=== PATIENT | male | born 1935 | race Caucasian/White ===

== ENCOUNTER 2019-12-30 13:36 | Emergency (ER) | payer MEDICARE ==
[~2019-12-30] VITALS: Ht 172.7 cm; Wt 75.5 kg
--- NOTE | 2019-12-30 13:51 | ED Upper Extremity ---
General Stated Complaint: LT ARM/HAND INJ Source: patient Exam Limitations: no limitations History of Present Illness Date Seen by Provider: Dec 30, 2019 Time Seen by Provider: 13:40 Initial Comments The patient is a pleasant 84-year-old male who presents for evaluation of a left wrist and hand injury. He states he was using a chainsaw to cut down a tree and had already cut down the tree but it was being held up off the ground by a large branch. He cut the branch and the the tree limb fell on him pinning him down and injuring his left hand/wrist. He states he feels that his wrist is fractured. There is a large skin tear to the back of the left hand. He is unsure of his last TDAP. The patient is unable to go through full range of motion of the left hand and wrist without significant discomfort. He denies hitting his head, losing consciousness, headache, neck pain, chest pain or shortness of breath. He states the tree hit his left leg and he is a little sore but denies any serious injury there and he has been able to ambulate. He is alert and oriented 4, calm, and appears to be uncomfortable but in no distress at this time. He says that he laid on the ground for about 30-40 minutes yelling for help. Onset: just prior to arrival Severity: severe Pain/Injury Location: left wrist, left hand Method of Injury: direct blow Modifying Factors: Improves With Movement (increases the pain), Improves With Rest (decreases the pain) Allergies and Home Medications Allergies Coded Allergies: No Known Drug Allergies (Unverified , 12/30/19) Home Medications Cephalexin 500 Mg Capsule, 500 MG PO Q8H Prescribed by: NADIYA MORILLO on 12/30/19 1501 Hydrocodone/Acetaminophen 1 Each Tablet, 1 EACH PO Q6H PRN for PAIN-MODERATE (5- 7) Prescribed by: NADIYA MORILLO on 12/30/19 1501 Patient Home Medication List Home Medication List Reviewed: Yes Review of Systems Constitutional: no symptoms reported EENTM: no symptoms reported Respiratory: no symptoms reported Cardiovascular: no symptoms reported Gastrointestinal: no symptoms reported Genitourinary: no symptoms reported Musculoskeletal: other (left hand/wrist injury) Skin: other (skin tear/lacerations to left hand) Psychiatric/Neurological: No Symptoms Reported All Other Systems Reviewed Negative Unless Noted: Yes Past Youpcpt-Xhdjrk-Pnixpu Hx Past Med/Social Hx: Reviewed Nursing Past Med/Soc Hx Patient Social History Recent Foreign Travel: No Contact w/Someone Who Travel: No Physical Exam Vital Signs Vital Signs - First Documented Capillary Refill : Height, Weight, BMI Height: '" Weight: lbs. oz. kg; BMI Method: General Appearance: WD/WN, no apparent distress HEENT: PERRL/EOMI, normal ENT inspection Neck: non-tender, full range of motion Cardiovascular: regular rate, rhythm, no edema, no JVD Respiratory: lungs clear, normal breath sounds, no respiratory distress, no accessory muscle use Gastrointestinal: normal bowel sounds, non tender, soft Shoulder: normal inspection, non-tender, no evidence of injury, normal ROM Elbow/Forearm: normal inspection, non-tender, no evidence of injury, normal ROM Wrist: Yes bone tenderness (left wrist on dorsal surface), Yes swelling Hand: bone tenderness (left dorsal hand diffusely over metacarpals), laceration (extensive skin tear to left dorsal hand), soft tissue tenderness Neurologic/Tendon: normal motor functions, normal tendon functions Neurologic/Psychiatric: no motor/sensory deficits, alert, normal mood/affect, oriented x 3 Skin: normal color, warm/dry, other (laceration to left palm, approx 5 cm, no active bleeding, flap-like skin tear to left distal dorsal forearm, no active bleeding ) Procedures/Interventions Wound Location: Upper Extremities Other Wound Location left palm Wound Length (cm): 5 Wound's Depth, Shape: superficial Wound Explored: contaminated Irrigated w/ Saline (ccs): 1000 Anesthesia: 1% Lidocaine Volume Anesthetic (ccs): 8 Suture: Monocryl Suture Size: 4-0 Number of Sutures: 9 Layer Closure?: 1 Number Deep Layer Sutures: 0 Sterile Dressing Applied?: Yes Progress Wound contaminated, anesthetized with 1% lidocaine then explored and thoroughly cleaned. No active bleeding. Pt tolerated the repair well, no complications. Splinting and Joint Reduction : Pre-Proc Neuro Vasc Exam: normal Post-Proc Neuro Vasc Exam: normal, unchanged from pre-exam Progress Pt tolerated the left ulnar gutter orthoglass splint well Hand-Made Type: orthoglass (left ulnar gutter splint) Progress/Results/Core Measures Results/Orders My Orders Orders - NADIYA MORILLO DO Wrist 3 View Left (12/30/19 13:46) Hand 3 View Left (12/30/19 13:46) Ed Iv/Invasive Line Start (12/30/19 13:46) Forearm 2 View Left (12/30/19 13:46) Fentanyl Injection (Sublimaze Injection (12/30/19 14:00) Dipht,Pertuss(Acell),Tet Adult (Boostrix (12/30/19 14:00) Lidocaine 1% Inj 20 Ml (Xylocaine 1% Inj (12/30/19 14:00) Ns Iv 1000 Ml (Sodium Chloride 0.9%) (12/30/19 14:30) Ortho Glass (12/30/19 14:25) Medications Given in ED Current Medications Medications Dose Ordered Sig/Prosper Route Start Time Stop Time Status Last Admin Dose Admin Diphtheria/ Tetanus/Acell Pertussis 0.5 ml ONCE ONCE IM 12/30/19 14:00 12/30/19 14:01 DC 12/30/19 14:06 0.5 ML Fentanyl Citrate 50 mcg ONCE ONCE IVP 12/30/19 14:00 12/30/19 14:01 DC 12/30/19 14:01 50 MCG Lidocaine HCl 20 ml ONCE ONCE INJ 12/30/19 14:00 12/30/19 14:01 DC 12/30/19 14:04 20 ML Vital Signs/I&O 12/30/19 12/30/19 13:42 13:42 Temp 36.4 36.4 Pulse 94 94 Resp 20 20 B/P (MAP) 142/72 (95) 142/72 (95) Pulse Ox 98 98 O2 Delivery Room Air Room Air Progress Progress Note : Progress Note @1525 - patient updated on imaging results which show a distal ulnar fracture. His laceration was repaired and the sutures will need to removed in 10 days. Advised the patient to follow-up with his PCP in 2-3 days for wound check and in 10 days for suture removal. Advised him to follow up with orthopedics in the next 1-2 weeks for repeat imaging and outpatient management. He will go home with a prescription for Keflex and [place]. Advised the patient to return to the emergency Department immediately for new or worsening symptoms. The patient expresses verbal understanding and agreement with the plan and is stable for discharge. Diagnostic Imaging Diagonstic Imaging: Xray Comments [facility]. [place], [place] NAME: BRIAN VELASCO [facility] REC#: [id number] PT STATUS: REG ER : 1935 PHYSICIAN: NADIYA MORILLO DO ADMIT DATE: 12/30/19/ER FS Draft Date of Exam:12/30/19 HAND 3 VIEW LEFT Left hand at 2:06 PM Indication: Injury 3 views were obtained. There are no prior studies available for comparison. There is an oblique slightly comminuted, slightly displaced fracture of the distal ulnar diaphysis. There is no fracture, dislocation or acute bony abnormality involving the hand itself. There is at least moderate degenerative disease of the radiocarpal joint and fairly severe degenerative disease of the triscaphe joint. There is also at least moderate degenerative disease of the 2nd and 3rd metacarpophalangeal joints. Moderate degenerative disease of the PIP and DIP joints is also noted. Reportedly the patient has a laceration along the palmar aspect of the hand. That injury is difficult to appreciate. There is no sign of a radiopaque foreign body. There does seem to be a soft tissue injury to the dorsum of the hand. There is no radiopaque foreign body in this area either. Impression: 1. There is a slightly comminuted and slightly displaced oblique fracture involving the neck of the distal ulnar diaphysis.. There is no acute bony abnormality noted otherwise. 2. 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 3. There is a soft tissue injury to the dorsum of the hand. There is no radiopaque foreign body identified. Dictated on workstation # [id number] Dict: 12/30/19 1423 Trans: 12/30/19 1428 [facility] [id number] Interpreted by: HEBERT CALVERT MD Electronically signed by: Departure Impression Primary Impression: Fracture of distal end of left ulna Additional Impressions: Skin tear of left hand without complication Skin tear of forearm without complication Disposition: 01 HOME, SELF-CARE Condition: Stable Departure-Patient Inst. Decision time for Depature: 15:30 Referrals: BARBARA KIDD MD Patient Instructions: Common Wrist Injuries, Forearm Fracture (DC), Laceration Repair With Stitches (DC) Add. Discharge Instructions: Take the prescribed medication as directed. Follow-up with orthopedics in the next 1-2 weeks. Keep the wound clean and dry and change the dressing in 48 hours. Follow-up with your primary care physician for wound check in 2-3 days. Sutures will need to be removed in 10 days. Scripts Hydrocodone/Acetaminophen (Hydrocodone-Acetamin 5-325 mg) 1 Each Tablet 1 EACH PO Q6H PRN for PAIN-MODERATE (5-7) for 5 Days, #20 TAB Prov: NADIYA MORILLO DO 12/30/19 Cephalexin (Cephalexin) 500 Mg Capsule 500 MG PO Q8H for 10 Days, #30 CAP Prov: NADIYA MORILLO DO 12/30/19 NADIYA MORILLO DO Dec 30, 2019 13:51
[2019-12-30] MEDS ORDERED: fentaNYL INJECTION 100 MCG/2 ML AMP IVP ONE (14:00)
[2019-12-30] MEDS ORDERED: LIDOCAINE 1% INJ 20 ML 20 ML VIAL INJ ONE (14:00)
[2019-12-30] MEDS ORDERED: TETANUS,DIPTH,PERTUSS P/F (BOOSTRIX) 0.5 ML VIAL IM ONE (14:00)
--- NOTE | 2019-12-30 14:26 | Diagnostic Imaging Report ---
INDICATION: Injury to left arm. AP and lateral views of the left forearm are obtained at 2:10 p.m. There is a comminuted fracture of the distal ulna with mild displacement. The radius appears intact. There is no other bony abnormality. IMPRESSION: Comminuted distal ulnar fracture with mild displacement. Dictated by: Dictated on workstation # [id number]
--- NOTE | 2019-12-30 14:29 | Diagnostic Imaging Report ---
Left hand at 2:06 PM Indication: Injury 3 views were obtained. There are no prior studies available for comparison. There is an oblique slightly comminuted, slightly displaced fracture of the distal ulnar diaphysis. There is no fracture, dislocation or acute bony abnormality involving the hand itself. There is at least moderate degenerative disease of the radiocarpal joint and fairly severe degenerative disease of the triscaphe joint. There is also at least moderate degenerative disease of the 2nd and 3rd metacarpophalangeal joints. Moderate degenerative disease of the PIP and DIP joints is also noted. Reportedly the patient has a laceration along the palmar aspect of the hand. That injury is difficult to appreciate. There is no sign of a radiopaque foreign body. There does seem to be a soft tissue injury to the dorsum of the hand. There is no radiopaque foreign body in this area either. Impression: 1. There is a slightly comminuted and slightly displaced oblique fracture involving the neck of the distal ulnar diaphysis.. There is no acute bony abnormality noted otherwise. 2. 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 3. There is a soft tissue injury to the dorsum of the hand. There is no radiopaque foreign body identified, however. Dictated by: Dictated on workstation # [id number]
[2019-12-30] MEDS ORDERED: NS IV 1000 ML 1,000 ML IV SCH (14:30)
--- NOTE | 2019-12-30 14:30 | Diagnostic Imaging Report ---
HISTORY: Trauma to the left arm, laceration to the palm of the left hand. TECHNIQUE: 2 views of the left wrist COMPARISON: None FINDINGS: There is a comminuted, minimally displaced, oblique fracture of the distal left ulnar diametaphysis. No extension to the articular surface is seen. There are advanced degenerative changes at the basal joints of the thumb. There is chronic appearing calcification in the region of the TFCC. There is soft tissue laceration at the dorsal and volar aspects of the left hand. No radiopaque foreign body is seen. IMPRESSION: 1. Minimally displaced comminuted fracture of the distal left ulna. 2. Soft tissue lacerations of the dorsal and volar left hand. No radiopaque foreign body is seen. Dictated by: Dictated on workstation # [id number]
[2019-12-30] MEDS ORDERED: HYDR-83 PO (15:01)
[2019-12-30] MEDS ORDERED: CEPH500C PO (15:01)
[2019-12-30 15:29] VITALS: BP 144/84
--- NOTE | 2019-12-30 15:29 | NUR ---
Pt discharged after review of home instructions verbalized as understood Pt had repair of left palm laceration near base of thumb with 9 sutures of 4-0 Nylon. Pt had hematoma to top of left hand in addition to severe skin tears on left hand lower forearm. These were cleansed with Betasept and sterile saline. Dressings of triple antibiotic ointment, non-adhesive dsgs then Kerlex fluff wrap. Pt had a short arm ulnar gutter splint applied per Dr order for the ulnar fx. Reviewed all instructions with patient and made several notes on instruction sheet. Pt is to leave dsg on for 48 hrs before changing, then daily wound cleaning and re-dressing. Neosporin ointment advised also in wound care. Sutures out in 10 days either here or if in f/u with ortho for fx or wound care. Pt being placed on antibiotics sent to [facility] and handed a script for Hydrocodone to get filled. 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
== END 2019-12-30 15:29 | disposition home or self-care (01) ==
LOC: ER FS 13:40
DX: S52.602A Unspecified fracture of lower end of left ulna, initial encounter for closed fracture (principal); S61.412A Laceration without foreign body of left hand, initial encounter; S51.812A Laceration without foreign body of left forearm, initial encounter; Z23 Encounter for immunization; W20.8XXA Other cause of strike by thrown, projected or falling object, initial encounter
CPT/HCPCS: 12002; 29125; 73090; 73110; 73130; 90715

== ENCOUNTER 2020-01-04 10:21 | Inpatient (IN) | payer MEDICARE ==
[~2020-01-04] VITALS: Ht 173 cm; Wt 75.2 kg
[~2020-01-04 10:21] MED LIST: CEPH500C PO; HYDR-83 PO
--- OUTSIDE RECORDS SUMMARY | 2020-01-04 10:29 | XMS REPORT | Continuity of Care Document ---
Author Organization Unknown Address Unknown Phone Unavailable Allergies Active Description Code Type Severity Reaction Onset Reported/Identified Relationship to Patient Clinical Status Yes No Known Drug Allergies [id number] Drug Allergy Unknown N/A 12/30/2019 Medications There is no data. Problems Date Dx Coded Attending Type Code Diagnosis Diagnosed By 12/30/2019 YISEL HEARN DO Ot M79.642 PAIN IN LEFT HAND 12/30/2019 YISEL HEARN DO Ot S51.812A LACERATION WITHOUT FOREIGN BODY OF LEFT 12/30/2019 YISEL HEARN DO Ot S52.602A UNSP FRACTURE OF LOWER END OF LEFT ULNA, 12/30/2019 YISEL HEARN DO Ot S61.412A LACERATION WITHOUT FOREIGN BODY OF LEFT 12/30/2019 YISEL HEARN DO Ot W20.8XXA OTH CAUSE OF STRIKE BY THROWN, PROJECTED 12/30/2019 YISEL HEARN DO Ot Z23 ENCOUNTER FOR IMMUNIZATION 01/03/2020 YISEL HEARN DO Ot M79.642 PAIN IN LEFT HAND 01/03/2020 YISEL HEARN DO Ot S51.812A LACERATION WITHOUT FOREIGN BODY OF LEFT 01/03/2020 YISEL HEARN DO Ot S52.602A UNSP FRACTURE OF LOWER END OF LEFT ULNA, 01/03/2020 YISEL HEARN DO Ot S61.412A LACERATION WITHOUT FOREIGN BODY OF LEFT 01/03/2020 YISEL HEARN DO Ot W20.8XXA OTH CAUSE OF STRIKE BY THROWN, PROJECTED 01/03/2020 YISEL HEARN DO Ot Z23 ENCOUNTER FOR IMMUNIZATION Procedures There is no data. Results There is no data. Encounters ACCT No. Visit Date/Time Discharge Status Pt. Type Provider Facility Loc./Unit Complaint [id number] 12/30/2019 13:40:00 020 15:29:00 DIS Emergency YISEL HEARN DO [facility] ER FS LT ARM/HAND INJ
[2020-01-04] MEDS ORDERED: HYDROcodone/APAP 5 MG/325 MG (LORTAB) TAB PO ONE (10:45)
--- NOTE | 2020-01-04 10:49 | ED Integumentary General ---
General Chief Complaint: Skin/Wound Problems Stated Complaint: LT HAND INFECTION Nursing Triage Note: Patient reports having injury to L arm 1 week prior. patient reports when changing bandage this morning he had copious amounts of drainage. Source: patient Exam Limitations: no limitations History of Present Illness Date Seen by Provider: Jan 04, 2020 Time Seen by Provider: 10:30 Initial Comments The patient is a pleasant 84-year-old male who presents for evaluation of possible infection to left hand and arm. I saw this patient in the emergency department 5 days ago after he had a tree fall on top of him while cutting it with a chainsaw. He was found to have a distal ulna fracture and was placed in an ulnar gutter splint. He also had a laceration to the palm which was repaired with sutures. His wounds were contaminated, were cleaned thoroughly, and he was placed on antibiotics which she has been compliant with. He states that his pain has been continuing but is helped by the prescribed [place]. He has been taking his temperature and has not had a fever. This morning when he was doing a dressing change he noticed some clear fluid coming out of his palm and felt like he could be pus. He says that some of his pain was relieved after this fluid came out. He states that he has contacted an orthopedic surgeon in the [place] area for follow-up but gave him the impression that they would not be able to see him because of the coronavirus. I explained to the patient that it is very important that he has actual orthopedic follow-up so I will provide him with additional resources today. Timing/Duration: this morning Severity: moderate Location: extremities (left forearm) Associated Symptoms: No fever Allergies and Home Medications Allergies Coded Allergies: No Known Drug Allergies (Unverified , 12/30/19) Home Medications Cephalexin 500 Mg Capsule, 500 MG PO Q8H Prescribed by: NADIYA MORILLO on 12/30/19 1501 Hydrocodone/Acetaminophen 1 Each Tablet, 1 EACH PO Q6H PRN for PAIN-MODERATE (5- 7) Prescribed by: NADIYA MORILLO on 12/30/19 1501 Patient Home Medication List Home Medication List Reviewed: Yes Review of Systems Review of Systems Constitutional: no symptoms reported EENTM: no symptoms reported Respiratory: no symptoms reported Cardiovascular: no symptoms reported Genitourinary: no symptoms reported Musculoskeletal: other (left forearm traumatic injury) Skin: other (left hand wounds) Psychiatric/Neurological: No Symptoms Reported Endocrine: No Symptoms Reported Hematologic/Lymphatic: No Symptoms Reported All Other Systems Reviewed Negative Unless Noted: Yes Past Aiygzln-Umuslg-Peygue Hx Past Med/Social Hx: Reviewed Nursing Past Med/Soc Hx Patient Social History Alcohol Use: Denies Use Recreational Drug Use: No 2nd Hand Smoke Exposure: No Recent Foreign Travel: No Contact w/Someone Who Travel: No Recent Infectious Disease Expo: No Recent Hopitalizations: No Immunizations Up To Date Tetanus Booster (TDap): Unknown Seasonal Allergies Seasonal Allergies: No Past Medical History Surgeries: Yes (Colonoscopy, Surgery for Gastritis, R ankle fx, carpal tunnel, septoplasty) Orthopedic Respiratory: Yes Asthma Cardiac: Yes Hypertension Neurological: No Genitourinary: Yes Benign Prostatic Hyperpl, Kidney Stones Gastrointestinal: Yes (Gastritis hx) Gastroesophageal Reflux Musculoskeletal: No Endocrine: Yes Diabetes, Non-Insulin dep HEENT: No Cancer: No Psychosocial: No Integumentary: No Blood Disorders: No Physical Exam Vital Signs Vital Signs - First Documented 01/04/20 10:26 Temp 36.6 Pulse 110 Resp 18 B/P (MAP) 122/71 (88) Pulse Ox 100 Capillary Refill : Less Than 3 Seconds General Appearance: WD/WN, no apparent distress HEENT: PERRL/EOMI, pharynx normal Neck: non-tender, full range of motion Cardiovascular: regular rate, rhythm, no edema, no JVD Respiratory: lungs clear, normal breath sounds, no respiratory distress Extremities: other (left hand with sutures in place over the thenar eminence on the palmar surface, skin is normal in color and temperature, no purulence is noted or able to be expressed, no bleeding, no wound dehiscence, skin tears to the dorsal aspect of the left hand appear to be healing normally without any overt sign of infection, no warmth, no drainage, there is some swelling and ecchymosis to the hand diffusely but no sign of compartment syndrome and capillary refills normal, there is point tenderness over the distal left ulna, there is also some bony tenderness over the left proximal lateral forearm, full range of motion of the left elbow and shoulder are present) Neurologic/Psychiatric: no motor/sensory deficits, alert, normal mood/affect, oriented x 3 Skin: normal color, warm/dry Procedures/Interventions Suture Size: 4-0 Progress/Results/Core Measures Results/Orders My Orders Orders - NADIYA MORILLO DO Forearm 2 View Left (01/04/20 10:43) Hydrocodone/Apap 5/325 Tablet (Lortab 5 (01/04/20 10:45) Ed Iv/Invasive Line Start (01/04/20 11:21) Cbc With Automated Diff (01/04/20 11:21) Comprehensive Metabolic Panel (01/04/20 11:21) Lactic Acid Analyzer (01/04/20 11:21) Blood Culture (01/04/20 11:21) Clindamycin 600 Mg/50 Ml Ivpb (Cleocin P (01/04/20 11:30) Cefazolin Injection (Ancef Injection) (01/04/20 11:30) Wound Culture (01/04/20 11:38) Medications Given in ED Current Medications Medications Dose Ordered Sig/Prosper Route Start Time Stop Time Status Last Admin Dose Admin Acetaminophen/ Hydrocodone Bitart 1 tab ONCE ONCE PO 01/04/20 10:45 01/04/20 10:46 DC 01/04/20 11:08 1 TAB Vital Signs/I&O 01/04/20 10:26 Temp 36.6 Pulse 110 Resp 18 B/P (MAP) 122/71 (88) Pulse Ox 100 Blood Pressure Mean: 88 Progress Progress Note : Progress Note @1120 - Patient notifies physician that he is not having purulence come out of his wound and the wound was reexamined and there is copious purulent seen at the proximal aspect of the wound. Labs, IV, antibiotics ordered. @1122 - Case was discussed with Dr. Acosta from orthopedics who excepts the orthopedic consultation and will examine the wound. @1130 - Dr. Bonilla, hospitalist, accepts the admission at [facility]. He is agreeable to the antibiotic choice and would like a wound culture to be performed. The patient would like to go by private vehicle which is reasonable. Diagnostic Imaging Diagonstic Imaging: Xray Comments [facility]. [place], [place] NAME: BRIAN VELASCO MED REC#: [id number] PT STATUS: REG ER : 1935 PHYSICIAN: NADIYA MORILLO DO ADMIT DATE: 01/04/20/ER FS Draft Date of Exam:01/04/20 FOREARM 2 VIEW LEFT INDICATION: History of recent wrist fracture. Interval increase in pain. COMPARISON: 12/30/2019 FINDINGS: Frontal and lateral radiographic views of the left forearm were obtained. Again identified is comminuted oblique oriented fracture of the distal left ulna. Fracture fragments are in stable alignment when compared to prior exam. There is no significant surrounding callus formation or other evidence of interval healing. No new acute fracture or dislocation is seen. There is degenerative narrowing of the radiocarpal joint space. Otherwise, joint spaces are maintained. No unexpected radiopaque foreign bodies are seen. IMPRESSION: 1. Stable left distal ulnar fracture. Dictated on workstation # [id number] Dict: 01/04/20 1104 Trans: 01/04/20 1107 [facility] [id number] Interpreted by: KANU ALLEN MD Electronically signed by: Departure Communication (Admissions) Time/Spoke to Admitting Phy: 11:30 Dr. Harris accepts the admission at [facility].. Impression Primary Impression: Infection of hand Additional Impression: Ulna distal fracture Disposition: ADMITTED INPATIENT Condition: Stable Admissions Decision to Admit Reason: Admit from ER (General) Decision to Admit/Date: Jan 04, 2020 Time/Decision to Admit Time: 11:30 Departure-Patient Inst. Referrals: NO,LOCAL PHYSICIAN (PCP/Family) Primary Care Physician NADIYA MORILLO DO Jan 04, 2020 10:49
--- NOTE | 2020-01-04 11:08 | Diagnostic Imaging Report ---
INDICATION: History of recent wrist fracture. Interval increase in pain. COMPARISON: 12/30/2019 FINDINGS: Frontal and lateral radiographic views of the left forearm were obtained. Again identified is comminuted oblique oriented fracture of the distal left ulna. Fracture fragments are in stable alignment when compared to prior exam. There is no significant surrounding callus formation or other evidence of interval healing. No new acute fracture or dislocation is seen. There is degenerative narrowing of the radiocarpal joint space. Otherwise, joint spaces are maintained. No unexpected radiopaque foreign bodies are seen. IMPRESSION: 1. Stable left distal ulnar fracture. Dictated by: Dictated on workstation # [id number]
[2020-01-04] MEDS ORDERED: ceFAZolin INJECTION 1,000 MG in WATER (STERILE) FOR INJECTION 10 ML IV ONE (11:30)
[2020-01-04] MEDS ORDERED: CLINDAMYCIN 600 MG/50 ML IVPB 50 ML IV ONE (11:30)
[2020-01-04 12:06] LABS: HEMATOCRIT 33 % (40-54); HEMOGLOBIN 11.3 G/DL (13.3-17.7); MEAN CORPUSCULAR HEMOGLOBIN 36 PG (25-34); WHITE BLOOD COUNT 7.4 10^3/uL (4.3-11.0)
[2020-01-04 12:07] LABS: BASOPHILS % (AUTO) 0 % (0-10); EOSINOPHILS # (AUTO) 0.1 10^3/uL (0.0-0.3); EOSINOPHILS % (AUTO) 2 % (0-10); LYMPHOCYTES # (AUTO) 1.2 X 10^3 (1.0-4.0); LYMPHOCYTES % (AUTO) 16 % (12-44); MEAN CORPUSCULAR HGB CONC 35 G/DL (32-36); MEAN CORPUSCULAR VOLUME 103 FL (80-99); MEAN PLATELET VOLUME 10.5 FL (7.4-10.4); MONOCYTES # (AUTO) 0.9 X 10^3 (0.0-1.0); MONOCYTES % (AUTO) 12 % (0-12); NEUTROPHILS # (AUTO) 5.2 X 10^3 (1.8-7.8); NEUTROPHILS % (AUTO) 70 % (42-75); PLATELET COUNT 290 10^3/uL (130-400); RED CELL DISTRIBUTION WIDTH 13.2 % (10.0-14.5)
[2020-01-04 12:29] LABS: CREATININE SERUM 1.28 MG/DL (0.60-1.30); POTASSIUM 4.2 MMOL/L (3.6-5.0)
[2020-01-04 12:30] LABS: ALBUMIN 3.7 GM/DL (3.2-4.5); BILIRUBIN,TOTAL 0.5 MG/DL (0.1-1.0); CALCIUM 9.9 MG/DL (8.5-10.1); TOTAL PROTEIN 6.9 GM/DL (6.4-8.2)
[2020-01-04] MEDS ORDERED: NS IV 1000 ML 1,000 ML IV SCH (12:45)
--- OUTSIDE RECORDS SUMMARY | 2020-01-04 12:53 | XMS REPORT | Continuity of Care Document ---
Author Organization Unknown Address Unknown Phone Unavailable Allergies Active Description Code Type Severity Reaction Onset Reported/Identified Relationship to Patient Clinical Status Yes No Known Drug Allergies [id number] Drug Allergy Unknown N/A 12/30/2019 Medications There [...] BY THROWN, PROJECTED 12/30/2019 YISEL HEARN DO B Ot Z23 ENCOUNTER FOR IMMUNIZATION 01/03/2020 YISEL [...] BY THROWN, PROJECTED 01/03/2020 YISEL HEARN DO B Ot Z23 ENCOUNTER FOR IMMUNIZATION Procedures There is no data. Results Test Result Range Complete blood count (CBC) with automate d white blood cell (WBC) differential - 01/04/20 11:50 Blood leukocytes automated count (number/volume) 7.4 10*3/uL 4.3-11.0 Blood erythrocytes automated count (number/volume) 3.17 10*6/uL 4.35-5.85 Venous blood hemoglobin measurement (mass/volume) 11.3 g/dL 13.3-17.7 Blood hematocrit (volume fraction) 33 % 40-54 Automated erythrocyte mean corpuscular volume 103 [foz_us] 80-99 Automated erythrocyte mean corpuscular h emoglobin (mass per erythrocyte) 36 pg 25-34 Automated erythrocyte mean corpuscular h emoglobin concentration measurement (mass/volume) 35 g/dL 32-36 Automated erythrocyte distribution width ratio 13. 2 % 10.0- 14.5 Automated blood platelet count (count/volume) 290 10*3/uL 130-400 Automated blood platelet mean volume measurement 10.5 [foz_us] 7.4-10.4 Automated blood neutrophils/100 leukocytes 70 % 42-75 Automated blood lymphocytes/100 leukocytes 16 % 12-44 Blood monocytes/100 leukocytes 12 % 0-12 Automated blood eosinophils/100 leukocytes 2 % 0-10 Automated blood basophils/100 leukocytes 0 % 0-10 Blood neutrophils automated count (number/volume) 5.2 10*3 1.8-7.8 Blood lymphocytes automated count (number/volume) 1.2 10*3 1.0-4.0 Blood monocytes automated count (number/volume) 0. 9 10*3 0.0-1.0 Automated eosinophil count 0.1 10*3/uL 0 .0-0.3 Automated blood basophil count (count/volume) 0.0 10*3/uL 0.0-0.1 Comprehensive metabolic panel - 01/04/20 11:50 Serum or plasma sodium measurement (moles/volume) 134 mmol/L 135-145 Serum or plasma potassium measurement (moles/volume) 4.2 mmol/L 3.6-5.0 Serum or plasma chloride measurement (moles/volume) 98 mmol/L 98-107 Carbon dioxide 19 mmol/L 21-32 Serum or plasma anion gap determination (moles/volume) 17 mmol/L 5-14 Serum or plasma urea nitrogen measurement (mass/volume ) 28 mg/dL 7-18 Serum or plasma creatinine measurement (mass/volume) 1.28 mg/dL 0.60-1.30 Serum or plasma urea nitrogen/creatinine mass ratio 22 NRG Serum or plasma creatinine measurement w ith calculation of estimated glomerular filtration rate 54 NRG Serum or plasma glucose measurement (mass/volume) 249 mg/dL 70-105 Serum or plasma calcium measurement (mass/volume) 9.9 mg/dL 8.5-10.1 Serum or plasma total bilirubin measurement (mass/volu me) 0.5 mg/dL 0.1-1.0 Serum or plasma alkaline phosphatase andrea surement (enzymatic activity/volume) 162 U/L 40-136 Serum or plasma aspartate aminotransfera se measurement (enzymatic activity/volume) 38 U/L 5-34 Serum or plasma alanine aminotransferase measurement (enzymatic activity/volume) 37 U/L 0-55 Serum or plasma protein measurement (mass/volume) 6.9 g/dL 6.4-8.2 Serum or plasma albumin measurement (mass/volume) 3.7 g/dL 3.2-4.5 CALCIUM CORRECTED 10.1 mg/dL 8.5-10.1 Blood lactic acid measurement (moles/vol ume) - 01/04/20 11:50 Blood lactic acid measurement (moles/volume) 4.35 mmol/L 0.50-2.00 Encounters ACCT No. Visit Date/Time Discharge Status Pt. Type Provider Facility Loc./Unit Complaint [id number] 12/30/2019 13:40:00 020 15:29:00 DIS Emergency YISEL HEARN DO [facility] ER FS LT ARM/HAND INJ [id number] 01/04/2020 12:08:00 Document Registration
--- NOTE | 2020-01-04 14:35 | NUR ---
BRIAN VELASCO admitted to room 421-1, with an admitting diagnosis of left hand infection, on 01/04/[facility] via EMS stretcherROD HARVALEE W introduced to surroundings, call light, bed controls, phone, TV, temperature control, lights, meal times, smoking policy, visitor policy, side rail policy, bathrooms and showers. Patient Rights given to patient in the handbook. BRIAN VELASCO verbalizes understanding that [facility] is not responsible for the loss or damage to any personal effects or valuables that are kept in the patients posession during their hospitalization. The following Patient Care Plans and discharge were discussed with the patient. BRIAN VELASCO verbalizes understanding of Interdisciplinary Patient Education. Patient was informed about the Rapid Response Team and its purpose.
[2020-01-04 14:36] VITALS: BP 137/87
[2020-01-04] MEDS ORDERED: ACET-2267 PO (14:49)
[2020-01-04] MEDS ORDERED: MELO7.5T46 PO (14:49)
[2020-01-04] MEDS ORDERED: CEPH500C PO (14:49)
[2020-01-04] MEDS ORDERED: HYDR-83 PO (14:49)
[2020-01-04] MEDS ORDERED: METF-399 PO (14:49)
[2020-01-04] MEDS ORDERED: LOSA1TAB26 PO (14:49)
--- NOTE | 2020-01-04 14:50 | NUR ---
I SPOKE WITH THE PT AND WENT THRU THE EXT MED HISTORY TO COMPLETE THE MED REC AMLODIPINE 5MG WAS FILLED 09-21-2019 #90 HOWEVER THE PT HAS STOPPED THIS MEDICATION DUE TO THE SIDE EFFECTS HE WAS EXPERIENCING (PT SAID IT MADE HIM FEEL "OFF") THEREFORE I DID NOT INCLUDE THIS ON THE MED REC OTC MEDS: TYLENOL
[2020-01-04] MEDS ORDERED: CATHETER FLUSH 10 ML SYR IV PRN (15:00)
[2020-01-04 16:00] VITALS: BP 130/78
[2020-01-04] MEDS ORDERED: HYDROcodone/APAP 5 MG/325 MG (LORTAB) TAB PO PRN (16:15)
--- NOTE | 2020-01-04 16:27 | NUR ---
PATIENT REQUESTED TO HOLD OFF ON SIGNING CONSENT (NOT SIGNED) - HAD QUESTIONS FOR DR KIDD ABOUT THE FX, WOULD LIKE TO DISCUSS THIS BEFORE SURGERY
--- NOTE | 2020-01-04 16:43 | CONSULTATION REPORT ---
DATE OF SERVICE: 01/04/2020 INPATIENT CONSULTATION REASON FOR CONSULTATION: Left hand infection. HISTORY OF PRESENT ILLNESS: The patient is an 84-year-old gentleman who was transferred from the [place] Emergency Department for concerns about left hand infection. Apparently last , he was cutting down a maple tree when it fell hitting his hand against a bar. He reports that the trunk hit his hand dorsally, which bend the volar aspect against a metal, which caused in it degloving posteriorly and a laceration palmarly. This was treated with local irrigation and debridement with wound exploration in the Emergency Department by Dr. Munoz. Dr. Munoz was working today in the ER. The patient presented with complaints of purulence coming from his wound. The patient denies fever, chills or night sweats. He reports that he awoke this morning and noticed purulence from the laceration site. PAST MEDICAL HISTORY: Significant for diabetes mellitus. ALLERGIES: No known drug allergies. MEDICATIONS: Cephalexin, hydrocodone. PAST SURGICAL HISTORY: Colonoscopy, right ankle, carpal tunnel, knee arthroscopy. PHYSICAL EXAMINATION: The left hand demonstrates a degloving injury superficially to the dorsal aspect of the left hand. There is no purulence. The palmar aspects demonstrate a well-approximated laceration over the thenar eminence. The suture line is intact. There is no associated erythema or warmth; however, there is purulence that can be expressed primarily from the inferior aspect of the wound. There is some mild fluctuance noted as well and the surrounding soft tissues. He has full IP flexion and extension as well as MCP flexion and extension with no pain elicited. He is nontender along his flexor tendons throughout his thumb and fingers. He has no pain with passive range of motion of the fingers or thumb. IMPRESSION: Left thumb thenar abscess status post laceration with contaminated wound. PLAN: Irrigation and debridement of the left hand laceration. The risks, benefits, options, ramifications and recovery were discussed with the patient. He understands and wishes to proceed. Job ID: [id number] DocumentID: [id number] Dictated Date: 01/04/2020 15:13:13 Cosmetic Dentist Date: 01/04/2020 16:42:43 Dictated By: BARBARA KIDD MD
[2020-01-04] MEDS ORDERED: ANTACID SUSP 30 ML UDC (MYLANTA) PO PRN (16:45)
[2020-01-04] MEDS ORDERED: ONDANSETRON 4 MG (ZOFRAN) ORAL DISSOLVE TAB PO PRN (16:45)
[2020-01-04] MEDS ORDERED: PHARMACY TO DOSE SQ SCH (16:45)
[2020-01-04] MEDS ORDERED: diphenhydrAMINE 25 MG TAB (BENADRYL) PO PRN (16:45)
[2020-01-04] MEDS ORDERED: VANCOMYCIN INJECTION 0.1 MG in NS (IVPB) 250 ML IV SCH (16:45)
[2020-01-04] MEDS ORDERED: BISACODYL 10 MG SUPP (DULCOLAX) PR PRN (16:45)
[2020-01-04] MEDS ORDERED: ONDANSETRON 4 MG/2 ML (SDV) Z0FRAN IV PRN (16:45)
[2020-01-04] MEDS ORDERED: ACETAMINOPHEN 325 MG TABLET PO PRN (16:45)
[2020-01-04] MEDS ORDERED: MELATONIN 3 MG TABLET PO PRN (16:45)
[2020-01-04] MEDS ORDERED: polyethylene glycoL POWDER 17 GM (MIRALAX) PACK PO PRN (16:45)
--- NOTE | 2020-01-04 16:45 | NUR ---
CR 1.28; CR CL ~42; WT 75.9 KG; VANCO 1500 MG IV BOLUS THEN 1250 MG IV Q24H; TROUGH AFTER 3RD DOSE
[2020-01-04] MEDS ORDERED: VANCOMYCIN 1500 MG/NS 500 ML IVPB IV NR ×2 (17:00)
[2020-01-04] MEDS ORDERED: PIPERACILLIN/TAZO 4.5 GM/NS 100 ML IV NR ×2 (17:00)
[2020-01-04] MEDS: ENOXAPARIN 40 MG/0.4 ML (LOVENOX) SYR SC SCH (17:06)
[2020-01-04] MEDS: LACTATED RINGERS 1,000 ML IV SCH (17:08)
[2020-01-04] MEDS: inSUlin ASPART (NovoLOG) 1 UNIT/0.01 ML (CHARGE PER UNIT) SC SCH ×2 (17:17→21:02)
[2020-01-04 20:00] VITALS: BP 149/79
[2020-01-04] MEDS: DOCUSATE SODIUM 100 MG (COLACE) CAP PO SCH (20:16)
[2020-01-04] MEDS: SENNA W/DOCUSATE (SENOKOT S) TABLET PO SCH (20:16)
[2020-01-04] MEDS: CATHETER FLUSH 10 ML SYR IV SCH (20:19)
[2020-01-05] VITALS (13 sets, daily range): BP systolic 129–177; BP diastolic 79–100
[2020-01-05] MEDS: PIPERACILLIN/TAZOBACTAM (BULK) 4.5 GM in NS (IVPB) 100 ML IV SCH ×4 (00:03→23:21)
[2020-01-05] MEDS: LACTATED RINGERS 1,000 ML IV SCH ×4 (00:40→19:02)
[2020-01-05] MEDS: inSUlin ASPART (NovoLOG) 1 UNIT/0.01 ML (CHARGE PER UNIT) SC SCH ×6 (00:41→21:18)
[2020-01-05] MEDS: CATHETER FLUSH 10 ML SYR IV SCH ×3 (03:43→21:18)
[2020-01-05 06:05] LABS: CHLORIDE 108 MMOL/L (98-107); SODIUM 138 MMOL/L (135-145)
[2020-01-05 06:06] LABS: CALCIUM 9.1 MG/DL (8.5-10.1)
[2020-01-05 06:07] LABS: GLUCOSE 195 MG/DL (70-105)
[2020-01-05 06:08] LABS: CARBON DIOXIDE 20 MMOL/L (21-32)
[2020-01-05 06:10] LABS: CREATININE SERUM 0.97 MG/DL (0.60-1.30); GFR ESTIMATED > 60
[2020-01-05 06:11] LABS: BUN/CREATININE RATIO 21
[2020-01-05 06:13] LABS: MAGNESIUM 1.3 MG/DL (1.6-2.4)
[2020-01-05 06:24] LABS: BASOPHILS % (AUTO) 0 % (0-10); EOSINOPHILS # (AUTO) 0.2 10^3/uL (0.0-0.3); EOSINOPHILS % (AUTO) 4 % (0-10); HEMATOCRIT 27 % (40-54); HEMOGLOBIN 9.1 G/DL (13.3-17.7); LYMPHOCYTES # (AUTO) 1.3 X 10^3 (1.0-4.0); LYMPHOCYTES % (AUTO) 27 % (12-44); MEAN CORPUSCULAR HEMOGLOBIN 35 PG (25-34); MEAN CORPUSCULAR HGB CONC 34 G/DL (32-36); MEAN CORPUSCULAR VOLUME 104 FL (80-99); MEAN PLATELET VOLUME 9.6 FL (7.4-10.4); MONOCYTES # (AUTO) 0.5 X 10^3 (0.0-1.0); MONOCYTES % (AUTO) 11 % (0-12); NEUTROPHILS # (AUTO) 2.8 X 10^3 (1.8-7.8); NEUTROPHILS % (AUTO) 58 % (42-75); PLATELET COUNT 198 10^3/uL (130-400); RED CELL DISTRIBUTION WIDTH 13.2 % (10.0-14.5); WHITE BLOOD COUNT 4.8 10^3/uL (4.3-11.0)
[2020-01-05] MEDS: POTASSIUM CL 10MEQ/50ML IVPB 50 ML IV SCH (06:30)
[2020-01-05] MEDS: KCL 20 MEQ TAB (K-DUR) PO SCH (06:30)
[2020-01-05] MEDS: MAGNESIUM 1 GM/100 ML IVPB 100 ML IV SCH ×5 (06:44→11:17)
--- NOTE | 2020-01-05 08:14 | Progress Note-Pre Operative ---
Pre-Operative Progress Note H&P Reviewed The H&P was reviewed, patient examined and no changes noted. Date Seen by Provider: Jan 05, 2020 Time Seen by Provider: 08:14 Date H&P Reviewed: Jan 05, 2020 Time H&P Reviewed: 08:14 Pre-Operative Diagnosis: left hand abscess BARBARA KIDD MD Jan 05, 2020 08:14
--- NOTE | 2020-01-05 08:15 | Progress Note-Post Operative ---
Post-Operative Progess Note Surgeon (s)/Stock Sheets Cleaner Inspector (s) Surgeon BARBARA KIDD MD Stock Sheets Cleaner Inspector: Carlos Miranda Pre-Operative Diagnosis left hand abscess Post-Operative Diagnosis left hand abscess Procedure & Operative Findings Date of Procedure 01/05/20 Procedure Performed/Findings irrigation and debridement of left hand Anesthesia Type GETA Estimated Blood Loss Estimated blood loss (mL): minimal Specimens/Packing Specimens Removed cultures sent Packing: none BARBARA KIDD MD Jan 05, 2020 08:15
[2020-01-05] MEDS ORDERED: BUPIVACAINE 0.5% 30 ML (SENSORCAINE) VIAL ONE (08:29)
[2020-01-05] MEDS ORDERED: ACETAMINOPHEN 325 MG TABLET PO PRN (08:30)
[2020-01-05] MEDS ORDERED: morphine INJ 4 MG/ML 1 ML (VIAL/SYRINGE) IVP PRN (08:30)
[2020-01-05] MEDS ORDERED: ONDANSETRON 4 MG/2 ML (SDV) Z0FRAN IVP PRN ×2 (08:30→10:15)
[2020-01-05] MEDS ORDERED: fentaNYL INJECTION 100 MCG/2 ML AMP ONE (08:55)
[2020-01-05] MEDS ORDERED: LIDOCAINE PF 2% 5 ML (XYLOCAINE) VIAL ONE (09:04)
[2020-01-05] MEDS ORDERED: proPOfol 200 MG/20 ML (DIPRIVAN) VIAL IV ONE (09:04)
--- NOTE | 2020-01-05 10:04 | Occ Therapy Progress Note ---
Therapy Progress Note OT orders received and chart reviewed. OT attempted eval at 0945, but pt was in surgery at that time. OT will attempt eval again at next available time. 1, visit 0945 LIDYA JUAREZ OT Jan 05, 2020 10:04
[2020-01-05] MEDS ORDERED: morphine INJ 10 MG/ML 1ML (SYR OR VIAL) ONE (10:10)
[2020-01-05] MEDS ORDERED: HYDROmorphone 2 MG/ML VIAL (DILAUDID) IV ONE (10:15)
[2020-01-05] MEDS ORDERED: morphine INJ 10 MG/ML 1ML (SYR OR VIAL) IVP ONE (10:15)
--- NOTE | 2020-01-05 11:03 | Anesthesia-General Post-Op ---
General Patient Condition Mental Status/LOC: Same as Preop Cardiovascular: Satisfactory Nausea/Vomiting: Absent Respiratory: Satisfactory Pain: Controlled Complications: Absent Post Op Complications Complications None Follow Up Care/Instructions Patient Instructions None needed. Anesthesia/Patient Condition Patient Condition Patient is doing well, no complaints, stable vital signs, no apparent adverse anesthesia problems. NICOLE ALLEN DO Jan 05, 2020 11:03
[2020-01-05] MEDS: SENNA W/DOCUSATE (SENOKOT S) TABLET PO SCH ×2 (11:25→20:02)
[2020-01-05] MEDS: LOSARTAN 100 MG (COZAAR) TABLET PO SCH (11:25)
[2020-01-05] MEDS: CIPROFLOXACIN IV 400MG/200ML 200 ML IV SCH ×2 (11:25→20:00)
[2020-01-05] MEDS: DOCUSATE SODIUM 100 MG (COLACE) CAP PO SCH ×2 (11:25→20:01)
--- NOTE | 2020-01-05 11:29 | OPERATIVE REPORT ---
DATE OF SERVICE: PREOPERATIVE DIAGNOSIS: Left hand abscess. POSTOPERATIVE DIAGNOSIS: Left hand abscess. PROCEDURE: Irrigation and debridement of left hand. SURGEON: Lukas Kdid MD. ICT ACCOUNT MANAGER: Carlos Miranda, who assisted throughout the procedure and closed the incision. ANESTHESIA: General endotracheal by Dr. Carranza. TOURNIQUET TIME: Not applicable. ESTIMATED BLOOD LOSS: Minimal. DRAINS: None. COMPLICATIONS: None. SPECIMENS: Cultures were sent. POSTOPERATIVE PLAN: Antibiotic coverage for gram negative rods. The patient was transferred to the recovery room awake and in stable condition. STATEMENT OF MEDICAL NECESSITY: The patient is an 84-year-old right-hand dominant gentleman, who sustained a traumatic laceration to his lefthand last week. He was treated at an outside Emergency Department with local wound exploration and irrigation and wound closure. He presented yesterday to the same Emergency Department and was found to have purulence. He had no systemic illness and the wound itself demonstrated no gross erythema or warmth. There was some mild fluctuance and there was purulence expressed. Because of this, it was recommended the patient undergo wound exploration with irrigation and debridement. DESCRIPTION OF PROCEDURE: After risks and benefits of procedure were discussed and questions were answered, informed consent was signed and placed on the chart, the operative site was confirmed in the preoperative holding area initialed by the surgeon. The patient was then transferred to the operating room. After adequate levels of general endotracheal anesthetic were obtained, a timeout was called, confirming the operative site. Left upper extremity was prepped and draped in the usual sterile fashion. The previously placed sutures were removed and the wound was opened and cultures were obtained. There was purulence noted, small area of purulent collection near the flexor carpi radialis sheath. During the operative procedure, the laboratory called and stated that his cultures from yesterday reveal gram-negative rods. The wound was carefully explored throughout. No large foreign bodies were noted. There was significant debris throughout the soft tissues. No necrosis was noted. No encapsulated purulence was noted. The debris was meticulously removed and debrided roughly with a Ray-Michell. There appeared to be no penetration into the deep tissues. This involved the thenar musculature both superficially and as stated the sheath of the flexor carpi radialis, but nothing deeper was noted and this did not extend deep into the palm. The wound was then copiously irrigated with a liter of lavage. As stated, no necrotic tissue was noted. The wound edges were sharply debrided and then closed in a loose fashion using a horizontal mattress fashion 4-0 Vicryl. A soft dressing and ulnar gutter splint were applied. The patient was transferred to the recovery room, awake and in stable condition. Job ID: [id number] DocumentID: [id number] Dictated Date: 01/05/2020 10:03:35 Civil Engineer Helper Date: 01/05/2020 11:29:06 Dictated By: LUKAS KIDD MD
[2020-01-05] MEDS: oxyCODONE/APAP 5/325MG (PERCOCET 5) TABLET PO PRN ×2 (11:31→20:01)
--- NOTE | 2020-01-05 13:29 | History & Physical-Hospitalist ---
History of Present Illness HPI/Chief Complaint Mark Hinojosa is an 84-year-old male with past medical history of hypertension who presented with left hand wound. He had been cutting down a tree about a week though and he was struck by a limb and had a laceration. He went to the [facility] emergency room and the wound was washed out. He was started on oral antibiotics with Keflex. His wound worsened and he developed more purulent drainage and thus he returned to the emergency room. He denies any fevers or chills. He denies any nausea or vomiting. He has no other complaints or concerns. Source: patient Exam Limitations: no limitations Date Seen 01/05/20 Time Seen by a Provider: 12:55 Attending Physician Rosario Montenegro MD PCP No,Local Physician Referring Physician Date of Admission Jan 04, 2020 at 12:45 Home Medications & Allergies Home Medications Reviewed patient Home Medication Reconciliation performed by pharmacy medication reconciliations satellite tv technician installer and/or nursing. Patients Allergies have been reviewed. Allergies Allergies Coded Allergies No Known Drug Allergies (Unverified12/30/19) Past Smxxttg-Zmvbkh-Lllfsb Hx Past Med/Social Hx: Reviewed Nursing Past Med/Soc Hx Patient Social History Alcohol Use: Denies Use Recreational Drug Use: No Smoking Status: Never a Smoker 2nd Hand Smoke Exposure: No Physical Abuse Screen: No Sexual Abuse: No Recent Foreign Travel: No Contact w/other who traveled: No Recent Hopitalizations: No Recent Infectious Disease Expo: No Immunizations Up To Date Tetanus Booster (TDap): Unknown Date of Pneumonia Vaccine: Oct 23, 2016 Seasonal Allergies Seasonal Allergies: No Past Medical History Surgeries: Orthopedic Currently Using CPAP: No Currently Using BIPAP: No Cardiac: Hypertension Genitourinary: Benign Prostatic Hyperpl, Kidney Stones Gastrointestinal: Gastroesophageal Reflux Endocrine: Diabetes, Non-Insulin dep History of Blood Disorders: No Family History Diabetes mellitus 20 MOTHER Review of Systems Constitutional: no symptoms reported EENTM: no symptoms reported Respiratory: no symptoms reported Cardiovascular: no symptoms reported Gastrointestinal: no symptoms reported Genitourinary: no symptoms reported Musculoskeletal: no symptoms reported Skin: lesions Psychiatric/Neurological: No Symptoms Reported Physical Exam Physical Exam Vital Signs Vital Signs - First Documented 01/04/20 01/04/20 10:26 14:36 Temp 36.6 Pulse 110 Resp 18 B/P (MAP) 122/71 (88) Pulse Ox 100 O2 Delivery Room Air Capillary Refill : Less Than 3 SecondsLess Than 3 Seconds Height, Weight, BMI Height: '" Weight: lbs. oz. kg; 25.36 BMI Method: General Appearance: No Apparent Distress, WD/WN Neck: Normal Inspection, Supple Respiratory: Lungs Clear, Normal Breath Sounds, No Respiratory Distress Cardiovascular: Regular Rate, Rhythm, No Edema, No Murmur Gastrointestinal: Normal Bowel Sounds, Non Tender, Soft Extremity: Non Tender, No Pedal Edema, Other (Left hand and forearm wrapped) Neurologic/Psychiatric: Alert, Oriented x3, No Motor/Sensory Deficits, Normal Mood/Affect Skin: Other (Left hand wound with wrap in place) Results Results/Procedures Labs Laboratory Tests 01/04/20 11:50 01/05/20 05:45 01/05/20 06:20 Patient resulted labs reviewed. Imaging: Reviewed Imaging Report Assessment/Plan Admission Diagnosis Left hand abscess Admission Status: Inpatient Order (span 2 midnights) Reason for Inpatient Admission: Abscess requiring incision and drainage Assessment and Plan Left hand abscess Left distal ulnar fracture Started on vancomycin and Zosyn, continue Wound culture obtained Surgery consulted, Dr. Acosta performed incision and drainage this morning Lactic acidosis Lactic acidosis above 4 on admission, 1.1 this morning Continue IV fluids Hypomagnesemia Mag 1.3 this morning, replaced with IV magnesium sulfate Continue to monitor and replace as needed Hypertension Continue losartan, hold hydrochlorothiazide Type II diabetes mellitus sliding scale insulin DVT prophylaxis: Lovenox Diagnosis/Problems Diagnosis/Problems (1) Abscess of left hand Status: Acute (2) Left ulnar fracture Status: Acute Qualifiers: Encounter type: subsequent encounter (3) HTN (hypertension) Status: Chronic Qualifiers: Hypertension type: essential hypertension Qualified Codes: I10 - Essential (primary) hypertension (4) T2DM (type 2 diabetes mellitus) Status: Chronic Qualifiers: Diabetes mellitus long-term insulin use: without buttermaker use (5) Lactic acidosis Status: Acute (6) Hypomagnesemia Status: Acute Clinical Quality Measures DVT/VTE Risk/Contraindication: Risk Factor Score Per Nursin RFS Level Per Nursing on Admit: 4+=Very High ROSARIO MONTENEGRO MD Jan 05, 2020 13:29
--- NOTE | 2020-01-05 13:34 | Physical Therapy Evaluation ---
PT Evaluation-General Medical Diagnosis Admission Date Jan 04, 2020 at 12:45 Medical Diagnosis: I&D of (L) hand Onset Date: Jan 05, 2020 Therapy Diagnosis Therapy Diagnosis: abnormality of gait Precautions Precautions/Isolations: Standard Precautions Weight Bear Status Right Lower Extremity: Right Weight Bearing/Tolerated Left Lower Extremity: Left Weight Bearing/Tolerated Referral Physician: Karla Reason for Referral: Evaluation/Treatment Social History Home: Single Level Current Living Status: Significant Other Entry Into Home: Stairs With Railing PT Steps Into Home: 2 Prior Prior Level of Function SCALE: Activities may be completed with or without assistive devices. 4-Lcjpvzbazv-xzojfsw completes the activity by him/herself with no assistance from a helper. 5-Set-up or Clean-up Assistance-helper sets up or cleans up; patient completes activity. [place] assists only prior to or following the activity. 4-Supervision or Touching Assistance-helper provides verbal cues and/or touching/steadying and/or contact guard assistance as patient completes activity. Assistance may be provided throughout the activity or intermittently. 3-Partial/Moderate Assistance-helper does LESS THAN HALF the effort. [place] lifts, holds or supports trunk or limbs, but provides less than half the effort. 2-Substantial/Maximal Assistance-helper does MORE THAN HALF the effort. [place] lifts or holds trunk or limbs and provides more than half the effort. 8-Aokazsspu-ykrmcx does ALL the effort. Patient does none of the effort to complete the activity. Or, the assistance of 2 or more helpers is required for the patient to complete the activity. If activity was not attempted, code reason: 7-Patient Refused. 9-Not Applicable-not attempted and the patient did not perform the activity before the current illness, exacerbation or injury. 10-Not Attempted due to Environmental Limitations-(lack of equipment, weather restraints, etc.). 88-Not Attempted due to Medical Conditions or Safety Concerns. Bed Mobility: 6 Transfers (B,C,W/C): 6 Gait: 6 Stairs: 6 Indoor Mobility (Ambulation): Independent Stairs: Independent Prior Devices Use: None PT Evaluation-Current Subjective The patient states that he is doing well. ROM/Strength ROM Lower Extremities WFL Strength Lower Extremities 4+/5 grossly Transfers Roll Left to Right (QC): 6 Sit to Lying (QC): 6 Lying to Sitting/Side of Bed(Q: 6 Sit to Stand (QC): 6 Chair/Oji-rf-Vgnrv Xfer(QC): 6 Gait Does the Patient Walk?: Yes Mode of Locomotion: Both Anticipated Mode of Locomotion: Walk Walk 10 feet (QC): 6 Walk 50 ft with 2 Turns(QC): 6 Distance: 50' Gait Assistive Device: None Balance Sitting Static: Normal Sitting Dynamic: Normal Standing Static: Normal Standing Dynamic: Good Assessment/Needs The patient is at baseline for all gait and balance activities and does not need skilled PT. Rehab Potential: Good PT Plan Treatment/Plan Treatment Plan: Discontinue PT Treatment Duration: Jan 05, 2020 Frequency: 1 time per week Time/GCodes Time In: 1315 Time Out: 1330 Total Billed Treatment Time: 15 Total Billed Treatment 1, EV Low Complexity x 15' ZELALEM ALLEN PT Jan 05, 2020 13:34
--- NOTE | 2020-01-05 13:53 | NUR ---
RD ASSESSMENT PMHx: DM; HTN; BPH; GERD; recent fracture to left arm PT INTERACTION: Pt was awake and pleasant during nutrition assessment. Pt states current appetite is fair and has been for some time. Note PO intake 100% x1meal since diet advancement after procedure, per chart review. Pt states trying to follow a low-CHO diet at home, and has no issues with chewing/swallowing food. Pt states no recent issues with n/v at this time. Pt states some issues with constipation, and that his last BM was 01/03. Note pt currently on bowel regimen of Colace BID; and Senna BID; per chart review. Pt states no recent wt changes. Note unable to determine recent wt hx, per chart review. Pt states current DM management is "a little out of whack the last few months." Note unable to determine recent HbA1c, per chart review. Note presence of wound on left hand, per chart review. ABNORMAL NUTRITION-RELATED LAB VALUES LOW: Mg 1.3 HIGH: Cl 108; BUN 20; glu 195 Est. kcal needs: 9319-1312 kcal | 25-30 kcal/kg Est. Pro needs: 92-107 g Pro | 1.2-1.4 g Pro/kg PES STATEMENT: Inadequate protein intake (NI-5.6.1) related to increased protein needs as evidenced by presence of wounds (left hand) INTERVENTION: Continue with current diet order of CHO 60g/m 0snack diet. Add Ensure HP (vary) to meals TID. Provides 160 kcal and 16 g Pro per serving for percevied benefit to wound healing. Will continue to follow and reassess as pt needs, intake, and status change. MONITOR/EVALUATE: PO Intake; Plan of Care; Hydration Status; Weight Status; Lab Values Ish Cohen, MS, RD, LD
--- NOTE | 2020-01-05 14:26 | Occupational Therapy Eval ---
OT Evaluation-General/PLF Medical Diagnosis Admission Date Jan 04, 2020 at 12:45 Medical Diagnosis: I&D of (L) hand Onset Date: Jan 05, 2020 Therapy Diagnosis Therapy Diagnosis: impaired ADL, decreased L hand function Precautions Precautions/Isolations: Standard Precautions Safety Interventions: None Referral Physician: Steven Referral Reason: Evaluation/Treatment Medical History Pertinent Medical History: DM, HTN Additional Medical History colonoscopy, R ankle, carpal tunnel, knee arthroscopy Current History Per H&P: "Mark Hinojosa is an 84-year-old male with past medical history of hypertension who presented with left hand wound. He had been cutting down a tree about a week though and he was struck by a limb and had a laceration. He went to the [place] emergency room and the wound was washed out. He was started on oral antibiotics with Keflex. His wound worsened and he developed more purulent drainage and thus he returned to the emergency room. He denies any fevers or chills. He denies any nausea or vomiting. He has no other complaints or concerns." Chart review indicates pt also fractured his left ulna. Social History Home: Single Level Current Living Status: Significant Other Entry Into Home: Stairs With Railing Steps Into Home: 2 ADL-Prior Level of Function SCALE: Activities may be completed with or without assistive devices. 4-Jcmnuhwlrr-fcfxaqt completes the activity by him/herself with no assistance from a helper. 5-Set-up or Clean-up Assistance-helper sets up or cleans up; patient completes activity. [place] assists only prior to or following the activity. 4-Supervision or Touching Assistance-helper provides verbal cues and/or touching/steadying and/or contact guard assistance as patient completes activity. Assistance may be provided throughout the activity or intermittently. 3-Partial/Moderate Assistance-helper does LESS THAN HALF the effort. [place] lifts, holds or supports trunk or limbs, but provides less than half the effort. 2-Substantial/Maximal Assistance-helper does MORE THAN HALF the effort. [place] lifts or holds trunk or limbs and provides more than half the effort. 1-Nlbrpkfbm-vwdjcs does ALL the effort. Patient does none of the effort to complete the activity. Or, the assistance of 2 or more helpers is required for the patient to complete the activity. If activity was not attempted, code reason: 7-Patient Refused. 9-Not Applicable-not attempted and the patient did not perform the activity before the current illness, exacerbation or injury. 10-Not Attempted due to Environmental Limitations-(lack of equipment, weather restraints, etc.). 88-Not Attempted due to Medical Conditions or Safety Concerns. ADL PLOF Comments Pt reports being independent with all ADLS and functional mobility at PLOF, no AE/AD, Self Care: Independent Functional Cognition: Independent DME/Equipment: Bath Chair, Grab Bars, Tub/Shower OT Current Status Subjective Pt laying in bed at start of session, agreeable to OT evaluation. Pt reports pain 1/10 in left hand. Mental Status/Objective Patient Orientation: Person, Place, Time, Situation Current Glasses/Contacts: Yes Hearing Aids: No Dentures/Partials: Yes Hand Dominance: Right Upper Extremity ROM decreased ROM LUE hand/wrist due to ulna fracture and wearing splint. Pt unable to make full fist with left hand. WFL RUE, WFL Left shoulder/elbow. Upper Extremity Coordination Decreased LUE Upper Extremity Sensation Pt denies tingling/numbness Upper Extremity Strength decreased LUE Other Treatments Pt laying in bed at start of session, agreeable to OT evaluation. OT educated pt on benefits and purpose of OT, he verbalized understanding. Pt provided information about PLOF and home set up, then he participated in UE screen. OT educated pt to perform AROM of fingers on L hand, he demo'd understanding performing 10 reps. Post OT session, pt laying in bed, call light in reach and all needs met. Education OT Patient Education: Correct positioning, Energy conservation, Exercise program, Progress toward Goal/Update tx plan, Purpose of tx/functional activities, Safety issues Teaching Recipient: Patient Teaching Methods: Discussion Response to Teaching: Verbalize Understanding OT Retirement Goals Clinical Sales Consultant Goals Time Frame: Jan 12, 2020 Eating (QC): 6 Oral Hygiene (QC): 6 Toileting Hygiene (QC): 6 Shower/Bathe Self (QC): 6 Upper Body Dressing (QC): 6 Lower Body Dressing (QC): 6 On/Off Footwear (QC): 6 demo independence with HEP 1=Demonstrate adherence to instructed precautions during ADL tasks. 2=Patient will verbalize/demonstrate understanding of assistive devices/modifications for ADL. 3=Patient will improve strength/tolerance for activity to enable patient to perform ADL's. OT Education/Plan Problem List/Assessment Assessment: Decreased UE Strength, Impaired I ADL's, Impaired Self-Care Skills Discharge Recommendations Plan/Recommendations: Continue POC Treatment Plan/Plan of Care Treatment,Training & Education: Yes Patient would benefit from OT for education, treatment and training to promote independence in ADL's, mobility, safety and/or upper extremity function for ADL's. Plan of Care: ADL Retraining, Functional Mobility, UE Funct Exercise/Act Treatment Duration: Jan 12, 2020 Frequency: At least 5 of 7 days/Wk (IRF) Estimated Hrs Per Day: 1.5 hours per day Agreement: Yes Rehab Potential: Good Time/GCodes Start Time: 14:00 Stop Time: 14:15 Total Time Billed (hr/min): 15 Billed Treatment Time 1, LIDYA ADAMS OT Jan 05, 2020 14:26
[2020-01-05] MEDS ORDERED: VANCOMYCIN 1250 MG/NS 250 ML IVPB IV SCH ×2 (17:00)
[2020-01-05] MEDS: ENOXAPARIN 40 MG/0.4 ML (LOVENOX) SYR SC SCH (17:34)
[2020-01-06] VITALS: BP 135/77
[2020-01-06] MEDS: inSUlin ASPART (NovoLOG) 1 UNIT/0.01 ML (CHARGE PER UNIT) SC SCH ×3 (00:07→08:13)
[2020-01-06] MEDS: oxyCODONE/APAP 5/325MG (PERCOCET 5) TABLET PO PRN (03:36)
[2020-01-06 04:00] VITALS: BP 134/70
[2020-01-06] MEDS: PIPERACILLIN/TAZOBACTAM (BULK) 4.5 GM in NS (IVPB) 100 ML IV SCH (06:04)
[2020-01-06] MEDS: CATHETER FLUSH 10 ML SYR IV SCH (06:04)
[2020-01-06 06:54] LABS: BASOPHILS % (AUTO) 0 % (0-10); EOSINOPHILS # (AUTO) 0.2 10^3/uL (0.0-0.3); EOSINOPHILS % (AUTO) 4 % (0-10); HEMATOCRIT 27 % (40-54); HEMOGLOBIN 8.9 G/DL (13.3-17.7); LYMPHOCYTES # (AUTO) 1.4 X 10^3 (1.0-4.0); LYMPHOCYTES % (AUTO) 24 % (12-44); MEAN CORPUSCULAR HEMOGLOBIN 35 PG (25-34); MEAN CORPUSCULAR HGB CONC 34 G/DL (32-36); MEAN CORPUSCULAR VOLUME 106 FL (80-99); MEAN PLATELET VOLUME 10.2 FL (7.4-10.4); MONOCYTES # (AUTO) 0.7 X 10^3 (0.0-1.0); MONOCYTES % (AUTO) 12 % (0-12); NEUTROPHILS # (AUTO) 3.4 X 10^3 (1.8-7.8); NEUTROPHILS % (AUTO) 59 % (42-75); PLATELET COUNT 219 10^3/uL (130-400); RED CELL DISTRIBUTION WIDTH 13.1 % (10.0-14.5); WHITE BLOOD COUNT 5.7 10^3/uL (4.3-11.0)
[2020-01-06 07:14] LABS: BUN/CREATININE RATIO 14; CARBON DIOXIDE 22 MMOL/L (21-32); CHLORIDE 105 MMOL/L (98-107); CREATININE SERUM 1.04 MG/DL (0.60-1.30); GFR ESTIMATED > 60; GLUCOSE 193 MG/DL (70-105); POTASSIUM 4.4 MMOL/L (3.6-5.0); SODIUM 136 MMOL/L (135-145)
[2020-01-06] MEDS: POTASSIUM CL 10MEQ/50ML IVPB 50 ML IV SCH (07:37)
[2020-01-06] MEDS: KCL 20 MEQ TAB (K-DUR) PO SCH (07:38)
--- NOTE | 2020-01-06 07:47 | Progress Note ---
Standard Progress Note Progress Notes/Assess & Plan Date Seen by a Provider: Jan 06, 2020 Time Seen by a Provider: 07:45 Progress/Assessment & Plan no complaints Vital Signs Date Time Temp Pulse Resp B/P (MAP) Pulse Ox O2 Delivery O2 Flow Rate FiO2 01/06/20 04:00 36.7 89 20 134/70 (91) 98 Room Air 01/06/20 00:00 36.8 90 20 135/77 (96) 98 Room Air 01/05/20 20:32 36.4 86 18 152/89 (110) 98 Room Air 01/05/20 20:00 Room Air 01/05/20 16:20 36.1 73 18 129/84 (99) 98 Room Air 01/05/20 12:00 36.1 81 16 176/94 (121) 96 Room Air 01/05/20 11:00 Room Air 01/05/20 11:00 36.6 20 164/94 (117) 95 Room Air 01/05/20 11:00 36.1 81 16 170/90 (116) 97 Room Air 01/05/20 10:50 20 164/92 (116) 95 Room Air 01/05/20 10:45 Room Air 01/05/20 10:40 20 160/84 (109) 96 Room Air 01/05/20 10:30 20 164/88 (113) 100 OxyMask 3 01/05/20 10:30 OxyMask 3 01/05/20 10:20 20 164/88 (113) 100 OxyMask 3 01/05/20 10:15 OxyMask 3 01/05/20 10:10 20 163/97 (119) 100 OxyMask 3 01/05/20 10:04 36.6 24 177/100 (125) 100 OxyMask 3 01/05/20 10:04 OxyMask 3 01/05/20 08:58 Room Air 01/05/20 08:00 36.4 79 16 159/83 (108) 98 Room Air I & O 01/06/20 07:00 Intake Total 3000 ml Output Total 1750 ml Balance 1250 ml Laboratory Tests Test 01/05/20 11:34 01/05/20 15:46 01/05/20 20:41 01/06/20 00:00 Range/Units Glucometer 236 H 279 H 300 H 216 H 70-110 MG/DL Test 01/06/20 03:30 01/06/20 06:45 Range/Units Glucometer 167 H 70-110 MG/DL White Blood Count 5.7 4.3-11.0 10^3/uL Red Blood Count 2.52 L 4.35-5.85 10^6/uL Hemoglobin 8.9 L 13.3-17.7 G/DL Hematocrit 27 L 40-54 % Mean Corpuscular Volume 106 H 80-99 FL Mean Corpuscular Hemoglobin 35 H 25-34 PG Mean Corpuscular Hemoglobin Concent 34 32-36 G/DL Red Cell Distribution Width 13.1 10.0-14.5 % Platelet Count 219 130-400 10^3/uL Mean Platelet Volume 10.2 7.4-10.4 FL Neutrophils (%) (Auto) 59 42-75 % Lymphocytes (%) (Auto) 24 12-44 % Monocytes (%) (Auto) 12 0-12 % Eosinophils (%) (Auto) 4 0-10 % Basophils (%) (Auto) 0 0-10 % Neutrophils # (Auto) 3.4 1.8-7.8 X 10^3 Lymphocytes # (Auto) 1.4 1.0-4.0 X 10^3 Monocytes # (Auto) 0.7 0.0-1.0 X 10^3 Eosinophils # (Auto) 0.2 0.0-0.3 10^3/uL Basophils # (Auto) 0.0 0.0-0.1 10^3/uL Sodium Level 136 135-145 MMOL/L Potassium Level 4.4 3.6-5.0 MMOL/L Chloride Level 105 98-107 MMOL/L Carbon Dioxide Level 22 21-32 MMOL/L Anion Gap 9 5-14 MMOL/L Blood Urea Nitrogen 15 7-18 MG/DL Creatinine 1.04 0.60-1.30 MG/DL Estimat Glomerular Filtration Rate > 60 BUN/Creatinine Ratio 14 Glucose Level 193 H 70-105 MG/DL Calcium Level 9.0 8.5-10.1 MG/DL LUE in splint NVI. No DC noted s/p I and D left hand with Gram neg ketan on culture DC home on PO Cipro FU Friday in [place] Discharge note dictated Focused Exam Lactate Level 01/04/20 16:44: Lactic Acid Level 4.32*H 01/04/20 18:47: Lactic Acid Level 3.71*H 01/05/20 05:45: Lactic Acid Level 1.14 BARBARA KIDD MD Jan 06, 2020 07:47
--- NOTE | 2020-01-06 07:52 | DISCHARGE SUMMARY ---
DATE OF SERVICE: DIAGNOSES: 1. Left hand abscess, status post open laceration. 2. Diabetes mellitus. PROCEDURE: Irrigation and debridement of the left hand. SUMMARY: The patient is an 84-year-old gentleman, who was transferred from outside facility for a purulent wound. He had undergone a treatment with local care with laceration closure about 5 days prior to that. There was gross purulence from the laceration site. He was taken to the operating room, where this was irrigated and debrided with a debris noted. His cultures were growing out gram-negative ketan, so he was changed to Cipro, which he will be discharged home on for 10 days. CONDITION AT DISCHARGE: Good. DISCHARGE DIET: Diabetic. FOLLOWUP: Followup is in Friday in [place] with nurse practitioner, Parag Mackenzie. DISCHARGE MEDICATIONS: Home medications, hydrocodone as needed for pain and Cipro 500 mg b.i.d. for 10 days. Job ID: [id number] DocumentID: [id number] Dictated Date: 01/06/2020 07:45:30 C.O.D. Audit Clerk Date: 01/06/2020 07:51:56 Dictated By: BARBARA KIDD MD
[2020-01-06 08:00] VITALS: BP 131/82
[2020-01-06] MEDS ORDERED: ENOXAPARIN 40 MG/0.4 ML (LOVENOX) SYR SC SCH (08:00)
[2020-01-06] MEDS: MAGNESIUM 1 GM/100 ML IVPB 100 ML IV SCH ×2 (08:13→09:18)
[2020-01-06] MEDS: LOSARTAN 100 MG (COZAAR) TABLET PO SCH (08:14)
[2020-01-06] MEDS: DOCUSATE SODIUM 100 MG (COLACE) CAP PO SCH (08:14)
[2020-01-06] MEDS: SENNA W/DOCUSATE (SENOKOT S) TABLET PO SCH (08:14)
[2020-01-06] MEDS ORDERED: CIPROFLOXACIN 500 MG (CIPRO) TABLET PO SCH (09:00)
--- NOTE | 2020-01-06 09:43 | Progress Note - Hospitalist ---
Subjective HPI/CC On Admission Date Seen by Provider: Jan 06, 2020 Time Seen by Provider: 08:40 Mark Hinojosa is an 84-year-old male with past medical history of hypertension who presented with left hand wound. He had been cutting down a tree about a week though and he was struck by a limb and had a laceration. He went to the [place] emergency room and the wound was washed out. He was started on oral antibiotics with Keflex. His wound worsened and he developed more purulent drainage and thus he returned to the emergency room. He denies any fevers or chills. He denies any nausea or vomiting. He has no other compl aints or concerns. Subjective/Events-last exam He is doing well this morning. His hand is still painful. He denies any fevers or chills. He denies any numbness or tingling. He denies any nausea or vomiting. He has no other complaints or concerns. Focused Exam Lactate Level 01/04/20 16:44: Lactic Acid Level 4.32*H 01/04/20 18:47: Lactic Acid Level 3.71*H 01/05/20 05:45: Lactic Acid Level 1.14 Objective Exam Vital Signs Vital Signs Date Time Temp Pulse Resp B/P (MAP) Pulse Ox O2 Delivery O2 Flow Rate FiO2 01/06/20 08:00 36.6 99 20 131/82 (98) 98 Room Air 01/05/20 10:30 3 Capillary Refill : Less Than 3 SecondsLess Than 3 Seconds General Appearance: No Apparent Distress, WD/WN Respiratory: Lungs Clear, Normal Breath Sounds, No Respiratory Distress Cardiovascular: Regular Rate, Rhythm, No Edema, No Murmur Gastrointestinal: Normal Bowel Sounds, Non Tender, Soft Extremity: No Pedal Edema, Other (Left arm with rapid in place) Neurologic/Psychiatric: Alert, Oriented x3, No Motor/Sensory Deficits, Normal Mood/Affect Skin: Normal Color, Warm/Dry Results/Procedures Lab Laboratory Tests 01/06/20 06:45 Patient resulted labs reviewed. Imaging: Reviewed Imaging Report Assessment/Plan Assessment and Plan Assess & Plan/Chief Complaint Left hand abscess Left distal ulnar fracture Dr. Acosta performed incision and drainage 01/04 Transition to oral ciprofloxacin Lactic acidosis, resolved Hypomagnesemia Continue to monitor and replace as needed Hypertension Continue losartan, hold hydrochlorothiazide Type II diabetes mellitus sliding scale insulin DVT prophylaxis: Lovenox Diagnosis/Problems Diagnosis/Problems (1) Abscess of left hand Status: Acute (2) Left ulnar fracture Status: Acute Qualifiers: Encounter type: subsequent encounter (3) HTN (hypertension) Status: Chronic Qualifiers: Hypertension type: essential hypertension Qualified Codes: I10 - Essential (primary) hypertension (4) T2DM (type 2 diabetes mellitus) Status: Chronic Qualifiers: Diabetes mellitus senior living insulin use: without senior living use (5) Lactic acidosis Status: Resolved Resolution Date/Time: 01/06/20 @ 09:43 (6) Hypomagnesemia Status: Acute Clinical Quality Measures DVT/VTE Risk/Contraindication: Risk Factor Score Per Nursin RFS Level Per Nursing on Admit: 4+=Very High JUAN MANUEL MONTENEGRO MD Jan 06, 2020 09:43
[2020-01-06 10:50] VITALS: BP 131/82
--- NOTE | 2020-01-06 10:55 | NUR ---
BRIAN VELASCO demonstrates understanding of discharge instructions and accurately returns instructions upon questioning. Copy of Post-Discharge Instructions and Medication Discharge Instructions given to PT . BRIAN VELASCO is able to manage continuing needs after discharge. Patients belongings returned to the pt. Skin dry and intact; no breakdown noted. Patient discharged from 420-1 on at 1055. BRIAN VELASCO left floor via , accompanied by STAFF.
--- NOTE | 2020-01-06 11:01 | Occ Therapy Progress Note ---
Therapy Progress Note Pt discharging to home today. Pt up in room ad william packing to go home. Pt given light resistance therapy sponge to increase pinch strength initially and AROM, decrease edema in fingers. Pt instructed to complete DIP and PIP movements at this time due to sutures. Nrsg in room to discharge pt. 1 visit: [id number] DORA TAPIA Jan 06, 2020 11:01
--- NOTE | 2020-01-07 12:55 | Physician Query Clarification ---
PQ-Debridement Admission/Discharge Admission Date: Jan 04, 2020 at 12:45 Discharge Date: Jan 06, 2020 at 10:55 PHYSICIAN RESPONSE Operative report/procedure note reflects the following description: There was significant debris throughout the soft tissues. No necrosis was noted. No encapsulated purulence was noted. The debris was meticulously removed and debrided roughly with a Ray-Michell. There appeared to be no penetration into the deep tissues. This involved the thenar musculature both superficially and as stated the sheath of the flexor carpi radialis, but nothing deeper was noted and this did not extend deep into the palm. The wound was then copiously irrigated with a liter of lavage. As stated, no necrotic tissue was noted. The wound edges were sharply debrided and then closed in a loose fashion using a horizontal mattress fashion 4-0 Vicryl. QUESTION: Please clarify the depth of the debridement. Please clarify if the debridement was excisional or non-excisional. Please document a response in the Progress Notes or Discharge Summary. 1. Level: Skin Subcutaneous tissue Fascia Muscle Bone 2. Type of debridement: Excisional Non-excisional 3. Other, with explanation of the clinical findings 4. Clinically unable to determine PQ Debridement : Level: Subcutaneous Tissue Type: Non-excisional Please remember a lack of response to the above will prompt a phone page by CDI/Coding staff. In responding to this query, please exercise your independent professional judgment. The purpose of this communication is to more accurately reflect the complexity of your patients condition. The fact that a question is asked does not imply that any particular answer is desired or expected. Thank you for your timely response to this clarification. Requestors name: Rose Marie THIS PHYSICIAN QUERY FORM IS A PERMANENT PART OF THE MEDICAL RECORD ROSE MARIE TREVIZO Jan 07, 2020 12:55 BARBARA KIDD MD Jan 07, 2020 18:10
[2020-01-07] MEDS ORDERED: TROUGH ORDER-PHARMACY XX NR ×2 (16:00)
--- NOTE | 2020-01-11 09:19 | Physician Query Clarification ---
PQ-Conflicting Diagnosis Admission/Discharge Admission Date: Jan 04, 2020 at 12:45 Discharge Date: Jan 06, 2020 at 10:55 The medical record reflects the following clinical scenario: History/Risk Factors: Lt. hand laceration with abscess, metabolic acidosis Clinical Findings: Lactic acid 4.35, P 110 Treatment: IV Vancomycin, IV Piperacillin, IV Clindamycin Question: Do you agree with the impression of the Sepsis per Dr. Munoz. Please document a response in Progress Note or Discharge Summary. 1. Yes 2. No 3. Other, with explanation of clinical findings 4. Clinically undetermined, no explanation for clinical findings. PHYSICIAN RESPONSE Do you agree w/Consulting Dx?: No Please remember a lack of response to the above will prompt a phone page by CDI/Coding staff. In responding to this query, please exercise your independent professional judgment. The purpose of this communication is to more accurately reflect the complexity of your patients condition. The fact that a question is asked does not imply that any particular answer is desired or expected. Thank you for your timely response to this clarification. Requestors name: Rose Marie THIS PHYSICIAN QUERY FORM IS A PERMANENT PART OF THE MEDICAL RECORD ROSE MARIE TREVIZO Jan 11, 2020 09:19 BARBARA KIDD MD Jan 11, 2020 13:48
== END 2020-01-06 10:55 | disposition home or self-care (01) | DRG 906 ==
LOC: EDUNIT# 10:21 → ER FS 10:22 → 4TH 12:45
PROVIDERS: ADMIT Internal Medicine; ATTEND Internal Medicine
PROC: 0JDK0ZZ Extraction of Left Hand Subcutaneous Tissue and Fascia, Open Approach (ICD-10-PCS; principal; 2020-01-05 09:01)
DX: S61.422A Laceration with foreign body of left hand, initial encounter (principal); L02.512 Cutaneous abscess of left hand; S52.602A Unspecified fracture of lower end of left ulna, initial encounter for closed fracture; E11.9 Type 2 diabetes mellitus without complications; J45.909 Unspecified asthma, uncomplicated; I10 Essential (primary) hypertension; K21.9 Gastro-esophageal reflux disease without esophagitis; N40.0 Benign prostatic hyperplasia without lower urinary tract symptoms; W20.8XXA Other cause of strike by thrown, projected or falling object, initial encounter; E87.2 Acidosis; E83.42 Hypomagnesemia
CPT/HCPCS: 36415; 73090; 80048; 80053; 82962; 83605; 83735; 84145; 85025; 85652; 86141; 87040; 87070; 87075; 87077; 87081; 87186; 87205; 96374; 96375

== ENCOUNTER → 2020-01-18 | Outpatient (CLI) | payer MEDICARE ==
[~2020-01-18] MED LIST changes: +ACET-2267 PO; +LOSA1TAB26 PO; +MELO7.5T46 PO; +METF-399 PO
--- NOTE | 2020-01-18 13:31 | Diagnostic Imaging Report ---
INDICATION: Left elbow pain and injury. TIME OF EXAM: 01:18 p.m. FINDINGS: Three views of the left elbow were obtained. Alignment is normal. No fracture, dislocation, or effusion is identified. IMPRESSION: No acute bony abnormality is detected. Dictated by: Dictated on workstation # [id number]
--- NOTE | 2020-01-18 13:33 | Diagnostic Imaging Report ---
INDICATION: Fracture. COMPARISON: 01/04/2020. FINDINGS: Comminuted fractures of the distal radius extend into the base of the nondisplaced ulnar styloid. 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 The distal radius shows no appreciable fracture. There has been no adverse interval development. IMPRESSION: Persistent visualization of unchanged distal ulnar fracture with no new abnormality. Dictated by: Dictated on workstation # [id number]
== END ==
LOC: RAD FS 12:51
PROVIDERS: ATTEND Nurse Practitioner
DX: M25.522 Pain in left elbow (principal); S67.22XD Crushing injury of left hand, subsequent encounter
CPT/HCPCS: 73080; 73100

== ENCOUNTER → 2020-02-01 | Outpatient (CLI) | payer MEDICARE ==
--- NOTE | 2020-02-01 12:45 | Diagnostic Imaging Report ---
INDICATION: Followup of left wrist fracture. COMPARISON: 01/18/2020. FINDINGS: The comminuted distal ulnar fracture extending into the articulating surface is unchanged in position. There has been some early healing with bony reabsorption along the fracture site. Early callus formation is beginning. Carpal bones remain in good alignment. Radiocarpal joint is in good alignment with advanced arthritic change. IMPRESSION: The mildly displaced comminuted fracture of the distal ulna is unchanged in alignment with early healing demonstrated. Dictated by: Dictated on workstation # [id number]
== END ==
LOC: RAD FS 09:42
PROVIDERS: ATTEND Nurse Practitioner
DX: S52.622D Torus fracture of lower end of left ulna, subsequent encounter for fracture with routine healing (principal)
CPT/HCPCS: 73100

== ENCOUNTER → 2020-02-22 | Outpatient (CLI) | payer MEDICARE ==
--- NOTE | 2020-02-22 09:14 | Diagnostic Imaging Report ---
EXAMINATION: Left wrist at 9:00 AM. INDICATION: Fracture followup. TECHNIQUE: AP and lateral views were obtained. FINDINGS: As noted on the prior exam of 02/01/2020, there is a healing oblique slightly comminuted and slightly displaced fracture of the distal ulnar metaphysis. The main fracture fragments are unchanged in alignment. There may be minimally greater callus formation than noted on the prior study. The main fracture line, however, is still clearly evident. No other fracture or acute bony abnormality is appreciated. The severe degenerative changes involving the radiocarpal and triscaphe joints noted on the prior study are again evident and no different. The soft tissues are unremarkable. IMPRESSION: The healing fracture of the distal ulnar metaphysis seen previously appears stable. Minimal new healing callus formation has developed. A followup exam would be recommended for continued evaluation. Dictated by: Dictated on workstation # [id number]
== END ==
LOC: RAD FS 08:55
PROVIDERS: ATTEND Nurse Practitioner
DX: S52.622D Torus fracture of lower end of left ulna, subsequent encounter for fracture with routine healing (principal)
CPT/HCPCS: 73100

== ENCOUNTER → 2020-03-23 | Outpatient (CLI) | payer MEDICARE ==
--- NOTE | 2020-03-23 09:37 | Diagnostic Imaging Report ---
INDICATION: Follow-up left wrist fracture. Time of exam 8:55 AM Correlation is made with prior study from 02/22/2020. Obliquely oriented fracture of the distal ulna is again noted. There is bridging callus formation present which is increasing since prior exam consistent with some healing. However, the fracture line remains clearly visible. No displacement or angulation is identified. The distal radius is intact. There are radiocarpal joint degenerative changes. There are also degenerative changes at the triscaphe and 1st CMC joints with joint space narrowing and marginal osteophyte formation. Metacarpals are intact. IMPRESSION: Healing distal ulnar fracture. Fracture line remains clearly visible however. Alignment is anatomic. Dictated by: Dictated on workstation # [id number]
== END ==
LOC: RAD FS 08:48
PROVIDERS: ATTEND Nurse Practitioner
DX: S52.135D Nondisplaced fracture of neck of left radius, subsequent encounter for closed fracture with routine healing (principal)
CPT/HCPCS: 73100

== ENCOUNTER → 2020-06-22 | Outpatient (CLI) | payer MEDICARE ==
[~2020-06-22] MED LIST changes: +ACHD5005 PO; -HYDR-83 PO
--- NOTE | 2020-06-22 08:54 | Diagnostic Imaging Report ---
Indication: Fracture. Exam compared with study 03/23/2020. Findings: There has been further new bone formation and partial healing of the distal ulnar fracture and stable alignment. Severe arthritic changes to the carpus redemonstrated. No new injury. Impression: Healing distal ulnar fracture in stable alignment with no adverse interval development. Dictated by: Dictated on workstation # [id number]
== END ==
LOC: RAD FS 08:36
PROVIDERS: ATTEND Nurse Practitioner
DX: S52.622D Torus fracture of lower end of left ulna, subsequent encounter for fracture with routine healing (principal); S67.22XD Crushing injury of left hand, subsequent encounter; X58.XXXD Exposure to other specified factors, subsequent encounter
CPT/HCPCS: 73100

== ENCOUNTER 2020-09-18 09:54 | Emergency (ER) | payer MEDICARE ==
[~2020-09-18] VITALS: Ht 172 cm; Wt 75.0 kg
--- NOTE | 2020-09-18 10:57 | ED EENT ---
History of Present Illness General Chief Complaint: Nasal Problems Stated Complaint: EPISTAXIS Nursing Triage Note: PT REPORTS A NOSE BLEED STARTED AT ABOUT 0730 THIS AM. HE DENIES BEING ON BLOOD THINNERS BUT HAS HAD SEVERAL NASAL SURGERIES OVER THE YEARS. BLEEDING HAS STOPPED UPON ARRIVAL TO ED. Source: patient History of Present Illness Date Seen by Provider: Sep 18, 2020 Time Seen by Provider: 10:57 Initial Comments 84-year-old male presenting with complaints of left-sided epistaxis. He states he woke up this morning and was having blood in the back of his throat. He continued to have bleeding from his nose as he walked to the bathroom. He had tried for 2 hours at home between holding pressure and trying to hold a cold wash cloth across his nose to get the bleeding to stop. Finally on the way to the emergency department the bleeding stopped. He has had extensive surgery on his nose and sinus cavities in the past creating a gym indicating passage through his posterior septum. So when he pressed on the left side the blood would come up and start bleeding down the right side of his nose. He denies any fever or chills. He has had no nasal congestion or recent cold symptoms. he has no trauma to his nose. Allergies and Home Medications Allergies Coded Allergies: No Known Drug Allergies (Unverified , 12/30/19) Home Medications Acetaminophen 500 Mg Tablet, 1,000 MG PO Q8H PRN for PAIN-MILD (1-4), (Reported) Hydrocodone/Acetaminophen 1 Each Tablet, 1 EACH PO Q6H PRN for PAIN-MODERATE (5- 7), (Reported) Losartan/Hydrochlorothiazide 1 Each Tablet, 1 EA PO DAILY, (Reported) Meloxicam 7.5 Mg Tablet, 7.5 MG PO DAILY, (Reported) Metformin HCl 1,000 Mg Tablet, 1,000 MG PO BID, (Reported) Patient Home Medication List Home Medication List Reviewed: Yes Review of Systems Review of Systems Constitutional: No chills, No dizziness, No fever Eyes: No Symptoms Reported Ears: No Symptoms Reported Nose: see HPI Mouth: no symptoms reported Throat: no symptoms reported Respiratory: no symptoms reported Cardiovascular: no symptoms reported Gastrointestinal: no symptoms reported Musculoskeletal: no symptoms reported Skin: no symptoms reported Neurological: Denies Headache, Denies Numbness, Denies Paresthesia, Denies Weakness Hematologic/Lymphatic: Denies Easy Bleeding, Denies Easy Bruising Past Ssbwrjj-Xmxefl-Zsdrwf Hx Past Med/Social Hx: Reviewed Nursing Past Med/Soc Hx Patient Social History Alcohol Use: Denies Use Recreational Drug Use: No Smoking Status: Never a Smoker 2nd Hand Smoke Exposure: No Recent Foreign Travel: No Contact w/Someone Who Travel: No Recent Infectious Disease Expo: No Recent Hopitalizations: No Physical Abuse: No Sexual Abuse: No Mistreated: No Fear: No Immunizations Up To Date Tetanus Booster (TDap): Unknown Date of Pneumonia Vaccine: Oct 23, 2016 Seasonal Allergies Seasonal Allergies: No Past Medical History Surgeries: Yes (Colonoscopy, Surgery for Gastritis, R ankle fx, carpal tunnel, septoplasty) Orthopedic Respiratory: Yes Asthma Currently Using CPAP: No Currently Using BIPAP: No Cardiac: Yes Hypertension Neurological: No Genitourinary: Yes Benign Prostatic Hyperpl, Kidney Stones Gastrointestinal: Yes (Gastritis hx) Gastroesophageal Reflux Musculoskeletal: No Endocrine: Yes Diabetes, Non-Insulin dep HEENT: No Cancer: No Psychosocial: No Integumentary: No Blood Disorders: No Family Medical History Diabetes mellitus 19 MOTHER Physical Exam Vital Signs Vital Signs - First Documented 09/18/20 10:00 Temp 36.9 Pulse 79 Resp 18 B/P (MAP) 145/98 (114) Pulse Ox 100 O2 Delivery Room Air Height, Weight, BMI Height: '" Weight: lbs. oz. kg; 25.00 BMI Method: General Appearance: WD/WN, no apparent distress Nose: No active bleeding; other (raised and irritated blood vessel on surface of anterior septum on left side. No active bleeding. Dry tissue to bilateral s ides of septum of nose.) Mouth/Throat: normal mouth inspection Neck: non-tender, supple Cardiovascular: normal peripheral pulses Neurologic/Psychiatric: alert, oriented x 3 Skin: warm/dry Procedures/Interventions Suture Size: 4-0 Progress/Results/Core Measures Results/Orders Vital Signs/I&O 09/18/20 09/18/20 10:00 11:14 Temp 36.9 36.4 Pulse 79 78 Resp 18 18 B/P (MAP) 145/98 (114) 124/68 Pulse Ox 100 99 O2 Delivery Room Air Room Air Blood Pressure Mean: 114 Progress Progress Note : Progress Note reassured pt that he has had no bleeding since block captain and during the hour he has been in the ED. Counseled on treatment and management at home with and back ointment or Vaseline to help keep his nares and septum moist. Also use a humidifier or vaporizer at the bedside. Advised if the bleeding starts again to hold direct pressure for at least 5-10 minutes and use ice chips in his mouth to help constrict the blood vessels. He may also be an ice pack over his nose. If this still does not control the bleeding then he could RETURN and we can use silver nitrate or cauterize that area. Also given information for Dr. Carrizales with ENT if he needs to follow-up through the clinic. patient did ask about holding his meloxicam. I advised him if he wanted to use Tylenol in place of the meloxicam for a few days so that the lining of the nose he'll that would be fine. However the meloxicam is supposed to have minimal to no effect on the platelets and bleeding. Departure Impression Primary Impression: Left-sided nosebleed Disposition: 01 HOME, SELF-CARE Condition: Improved Departure-Patient Inst. Decision time for Depature: 11:18 Referrals: BARBARA CARRIZALES MD NO,LOCAL PHYSICIAN (PCP) Primary Care Physician Patient Instructions: Nosebleeds, Humidifiers Add. Discharge Instructions: Apply a small amount of antibiotic ointment or vaseline 2-3 times a day to each side of nose to help keep it moist and help with healing of the irritation to t he septum from the nosebleed. Do this for the next 3-5 days and as needed if you feel like your nose is getting dried out. Use a humidifier or vaporizer at the bedside to help keep your nose from drying out overnight while sleeping. This is a common cause of nosebleeds during the Winter from using heat to warm our homes. All discharge instructions reviewed with patient and/or family. Voiced understanding. ROSLYN PERALES MD Sep 18, 2020 10:57
[2020-09-18 11:14] VITALS: BP 124/68
== END 2020-09-18 11:19 | disposition home or self-care (01) ==
LOC: EDUNIT# 09:54 → ER FS 09:56
DX: R04.0 Epistaxis (principal); I10 Essential (primary) hypertension; E11.9 Type 2 diabetes mellitus without complications; Z83.3 Family history of diabetes mellitus; Z79.84 Long term (current) use of oral hypoglycemic drugs
CPT/HCPCS: 99284

== ENCOUNTER 2021-09-19 13:14 | Outpatient (RCR) | payer MEDICARE ==
[2021-08-21 13:35] VITALS: BP 101/69
[2021-08-21 13:46] LABS: BASOPHILS % (AUTO) 1 % (0-10); EOSINOPHILS # (AUTO) 0.1 10^3/uL (0.0-0.3); EOSINOPHILS % (AUTO) 3 % (0-10); HEMATOCRIT 32 % (40-54); HEMOGLOBIN 10.9 g/dL (13.3-17.7); LYMPHOCYTES # (AUTO) 1.2 10^3/uL (1.0-4.0); LYMPHOCYTES % (AUTO) 31 % (12-44); MEAN CORPUSCULAR HEMOGLOBIN 37 pg (25-34); MEAN CORPUSCULAR HGB CONC 34 g/dL (32-36); MEAN CORPUSCULAR VOLUME 110 fL (80-99); MEAN PLATELET VOLUME 11.3 fL (9.0-12.2); MONOCYTES # (AUTO) 0.4 10^3/uL (0.0-1.0); MONOCYTES % (AUTO) 11 % (0-12); NEUTROPHILS # (AUTO) 2.1 10^3/uL (1.8-7.8); NEUTROPHILS % (AUTO) 55 % (42-75); PLATELET COUNT 143 10^3/uL (130-400); WHITE BLOOD COUNT 3.9 10^3/uL (4.3-11.0)
[2021-08-21 13:47] LABS: SMEAR SCAN COMMENT YES
[~2021-09-19] VITALS: Ht 172 cm; Wt 71.2 kg
[2021-09-19 14:21] VITALS: BP 152/102
== END 2021-09-21 | disposition home or self-care (01) ==
LOC: SDC 13:14
PROVIDERS: ATTEND Internal Medicine Gastroenterology
DX: E83.110 Hereditary hemochromatosis (principal)
CPT/HCPCS: 36415; 36592; 82728; 85025

== ENCOUNTER → 2021-10-22 | Outpatient (CLI) | payer MEDICARE ==
[2021-10-22 12:45] VITALS: BP 132/79
== END ==
LOC: EDSTATUS 09-22 12:22 → SDC 12:23
PROVIDERS: ATTEND Internal Medicine Gastroenterology
DX: E83.110 Hereditary hemochromatosis (principal)
CPT/HCPCS: 36592

== ENCOUNTER → 2021-11-19 | Outpatient (CLI) | payer MEDICARE ==
[~2021-11-19] VITALS: Ht 173 cm; Wt 71.2 kg
[2021-11-19 12:50] VITALS: BP 116/75
== END ==
LOC: SDC 11:35
PROVIDERS: ATTEND Internal Medicine Gastroenterology
DX: E83.110 Hereditary hemochromatosis (principal)
CPT/HCPCS: 36592

== ENCOUNTER → 2021-12-20 | Outpatient (CLI) | payer MEDICARE ==
[2021-12-20 11:40] VITALS: BP 111/82
== END ==
LOC: SDC 11:11
PROVIDERS: ATTEND Internal Medicine Gastroenterology
DX: E83.110 Hereditary hemochromatosis (principal)
CPT/HCPCS: 36592

== ENCOUNTER 2021-12-23 15:33 | Emergency (ER) | payer MEDICARE ==
[~2021-12-23] VITALS: Ht 172.7 cm; Wt 68.4 kg
[2021-12-23] MEDS ORDERED: fentaNYL INJ 100 MCG/2 ML AMP IVP STA (16:06)
--- NOTE | 2021-12-23 16:12 | ED General ---
General Chief Complaint: Abdominal/GI Problems Stated Complaint: HEMORRHOIDS Source of Information: Patient, Family (daughter) History of Present Illness Date Seen by Provider: Dec 23, 2021 Time Seen by Provider: 15:37 Initial Comments 86-year-old male presenting with complaints of difficulty urinating and going to the bathroom. He states has been going on throughout the week. Today he had increased pain to the left perirectal area and felt that it was firm and tender. He was concerned he had hemorrhage or had abscess infection. He had no bleeding with his stool. He was straining but only had a small bowel movement. He was not urinating this morning but did have 2 small urinations since this morning. He feels like he needs to pee but is not able to get anything out. He reports having issues with his liver and having cirrhosis with ascites. He also has an increased ferritin level and they are trying off blood to help try and decrease that. He is scheduled to have an EGD done this week. His doctors are all in [place] and he primarily goes through [facility] with Dr. Arce and Dr. Lopez. Severity: Moderate Associated Systoms: No Chest Pain, No Cough, No Diaphoresis, No Fever/Chills, No Headaches, No Loss of Appetite; Malaise; No Nausea/Vomiting, No Rash, No Seizure; Shortness of Air (chronic); No Syncope, No Weakness Allergies and Home Medications Allergies Coded Allergies: No Known Drug Allergies (Unverified , 12/30/19) Patient Home Medication List Home Medication List Reviewed: Yes Acetaminophen (Tylenol Extra Strength) 500 Mg Tablet, 1,000 MG PO Q8H PRN for PAIN-MILD (1-4), (Reported) Entered as Reported by: NANCY ESPARZA on 01/04/20 1449 Hydrocodone/Acetaminophen (Hydrocodone-Acetamin 5-325 mg) 1 Each Tablet, 1 EACH PO Q6H PRN for PAIN-MODERATE (5-7), (Reported) Entered as Reported by: NANCY ESPARZA on 01/04/20 1449 Hydrocodone/Acetaminophen (Hydrocodone-Acetamin 5-325 mg) 1 Each Tablet, 1 TAB PO Q6H PRN for PAIN-SEVERE (8-10) Prescribed by: ROSLYN PERALES on 12/23/21 627 Losartan/Hydrochlorothiazide (Losartan-Hctz 100-12.5 mg Tab) 1 Each Tablet, 1 EA PO DAILY, (Reported) Entered as Reported by: NANCY ESPARZA on 01/04/20 144 Meloxicam (Meloxicam) 7.5 Mg Tablet, 7.5 MG PO DAILY, (Reported) Entered as Reported by: NANCY ESPARZA on 01/04/201448 Metformin HCl (Metformin HCl) 1,000 Mg Tablet, 1,000 MG PO BID, (Reported) Entered as Reported by: NANCY ESPARZA on 01/04/201448 Review of Systems Review of Systems Constitutional: No chills, No fever; malaise EENTM: no symptoms reported Respiratory: see HPI Cardiovascular: no symptoms reported Gastrointestinal: see HPI; No constipation; diarrhea; No nausea, No vomiting; other (abdominal distention with ascites) Genitourinary: hesitancy Musculoskeletal: no symptoms reported Skin: no symptoms reported Psychiatric/Neurological: No Symptoms Reported Past Paojjym-Miwuox-Gzznsg Hx Patient Social History Tobacco Use?: No Use of E-Cig and/or Vaping dev: No Substance use?: No Alcohol Use?: No Immunizations Up To Date Tetanus Booster (TDap): Unknown Seasonal Allergies Seasonal Allergies: No Past Medical History Surgery/Hospitalization HX: Cirrhosis with ascites, Elevated Ferritin level, Diabetes, Hypertension Surgeries: Yes (Colonoscopy, Surgery for Gastritis, R ankle fx, carpal tunnel, septoplasty) Orthopedic Respiratory: Yes Asthma Currently Using CPAP: No Currently Using BIPAP: No Cardiac: Yes Hypertension Neurological: No Genitourinary: Yes Benign Prostatic Hyperpl, Kidney Stones Gastrointestinal: Yes (Gastritis hx) Gastroesophageal Reflux Musculoskeletal: No Endocrine: Yes Diabetes, Non-Insulin dep HEENT: No Cancer: No Psychosocial: No Integumentary: No Blood Disorders: No Family Medical History Diabetes mellitus 19 MOTHER Physical Exam Vital Signs Vital Signs - First Documented 12/23/21 15:42 Temp 36.5 Pulse 90 Resp 14 B/P (MAP) 122/64 (83) O2 Delivery Room Air Capillary Refill : Height, Weight, BMI Height: '" Weight: lbs. oz. kg; 25.00 BMI Method: General Appearance: No Apparent Distress, Chronically ill HEENT: PERRL/EOMI, Pharynx Normal Neck: Full Range of Motion, Normal Inspection, Non Tender, Supple Respiratory: Chest Non Tender, Lungs Clear, Normal Breath Sounds, No Accessory Muscle Use, No Respiratory Distress Cardiovascular: Regular Rate, Rhythm, Normal Peripheral Pulses Gastrointestinal: Normal Bowel Sounds, No Pulsatile Mass, Soft, Distended (fluid wave); No Guarding, No Rebound, No Tenderness Rectal: Normal Rectal Tone, Heme Negative Stool, Hemorrhoids (small non- thrombosed hemorrhoids present) Neurologic/Psychiatric: Alert, Oriented x3, 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 Norm as Tested Skin: Normal Color, Warm/Dry Procedures/Interventions Suture Size: 4-0 Progress/Results/Core Measures Suspected Sepsis SIRS Temperature: Pulse: Respiratory Rate: Laboratory Tests 12/23/21 16:10: White Blood Count 5.8 Blood Pressure / Mean: Laboratory Tests 12/23/21 16:10: Creatinine 1.25, INR Comment 1.0, Platelet Count 163, Total Bilirubin 1.1H Results/Orders Lab Results Laboratory Tests Test 12/23/21 16:10 12/23/21 16:25 Range/Units White Blood Count 5.8 4.3-11.0 10^3/uL Red Blood Count 2.92 L 4.30-5.52 10^6/uL Hemoglobin 10.8 L 13.3-17.7 g/dL Hematocrit 31 L 40-54 % Mean Corpuscular Volume 108 H 80-99 fL Mean Corpuscular Hemoglobin 37 H 25-34 pg Mean Corpuscular Hemoglobin Concent 34 32-36 g/dL Red Cell Distribution Width 13.8 10.0-14.5 % Platelet Count 163 130-400 10^3/uL Mean Platelet Volume 9.8 9.0-12.2 fL Immature Granulocyte % (Auto) 1 % Neutrophils (%) (Auto) 61 42-75 % Lymphocytes (%) (Auto) 21 12-44 % Monocytes (%) (Auto) 16 H 0-12 % Eosinophils (%) (Auto) 1 0-10 % Basophils (%) (Auto) 0 0-10 % Neutrophils # (Auto) 3.6 1.8-7.8 10^3/uL Lymphocytes # (Auto) 1.2 1.0-4.0 10^3/uL Monocytes # (Auto) 0.9 0.0-1.0 10^3/uL Eosinophils # (Auto) 0.1 0.0-0.3 10^3/uL Basophils # (Auto) 0.0 0.0-0.1 10^3/uL Immature Granulocyte # (Auto) 0.1 0.0-0.1 10^3/uL Prothrombin Time 14.0 12.2-14.7 SEC INR Comment 1.0 0.8-1.4 Activated Partial Thromboplast Time 31 24-35 SEC Sodium Level 128 L 135-145 MMOL/L Potassium Level 4.5 3.6-5.0 MMOL/L Chloride Level 94 L 98-107 MMOL/L Carbon Dioxide Level 21 21-32 MMOL/L Anion Gap 13 5-14 MMOL/L Blood Urea Nitrogen 26 H 7-18 MG/DL Creatinine 1.25 0.60-1.30 MG/DL Estimat Glomerular Filtration Rate 56 BUN/Creatinine Ratio 21 Glucose Level 494 *H 70-105 MG/DL Calcium Level 8.9 8.5-10.1 MG/DL Corrected Calcium 9.8 8.5-10.1 MG/DL Total Bilirubin 1.1 H 0.1-1.0 MG/DL Aspartate Amino Transf (AST/SGOT) 72 H 5-34 U/L Alanine Aminotransferase (ALT/SGPT) 54 0-55 U/L Alkaline Phosphatase 264 H 40-136 U/L C-Reactive Protein 8.51 H <0.50 MG/DL Total Protein 6.5 6.4-8.2 GM/DL Albumin 2.9 L 3.2-4.5 GM/DL Lipase 42 8-78 U/L Urine Color YELLOW Urine Clarity CLEAR Urine pH 6.0 5-9 Urine Specific [place] 1.015 L 1.016-1.022 Urine Protein NEGATIVE NEGATIVE Urine Glucose (UA) 3+ H NEGATIVE Urine Ketones NEGATIVE NEGATIVE Urine Nitrite NEGATIVE NEGATIVE Urine Bilirubin NEGATIVE NEGATIVE Urine Urobilinogen 0.2 < = 1.0 MG/DL Urine Leukocyte Esterase NEGATIVE NEGATIVE Urine RBC (Auto) NEGATIVE NEGATIVE Urine RBC NONE /HPF Urine WBC 0-2 /HPF Urine Crystals NONE /LPF Urine Bacteria TRACE /HPF Urine Casts NONE /LPF Urine Mucus NEGATIVE /LPF Urine Culture Indicated NO My Orders Orders - ROSLYN PERALES MD Comprehensive Metabolic Panel (12/23/21 16:04) Lipase (12/23/21 16:04) Ua Culture If Indicated (12/23/21 16:04) Ed Iv/Invasive Line Start (12/23/21 16:04) Cbc With Automated Diff (12/23/21 16:04) Ct Abdomen/Pelvis W (12/23/21 16:04) Protime With Inr (12/23/21 16:04) Partial Thromboplastin Time (12/23/21 16:04) Crp Fs (12/23/21 16:04) Bladder Scan (12/23/21 16:04) Fecal Occult Bedside (12/23/21 16:04) Fentanyl Inj (Sublimaze Injection) (12/23/21 16:06) Iohexol Injection (Omnipaque 350 Mg/Ml 1 (12/23/21 16:30) Received Contrast (Hold Metformin- Contr (12/23/21 16:30) Sodium Chloride Flush (Catheter Flush Sy (12/23/21 16:30) Ns (Ivpb) (Sodium Chloride 0.9% Ivpb Bag (12/23/21 16:30) Rx-Hydrocodone/Apap 5-325 Mg (Rx-Vicodin (12/23/21 18:15) Medications Given in ED Current Medications Medications Dose Ordered Sig/Prosper Route Start Time Stop Time Status Last Admin Dose Admin Iohexol 100 ml ONCE ONCE IV 12/23/21 16:30 12/23/21 16:31 DC 12/23/21 16:55 100 ML Sodium Chloride 10 ml NEEDED PRN IV 12/23/21 16:30 12/23/21 16:55 10 ML Sodium Chloride 100 ml ONCE ONCE IV 12/23/21 16:30 12/23/21 16:31 DC 12/23/21 16:55 100 ML Vital Signs/I&O 12/23/21 15:42 Temp 36.5 Pulse 90 Resp 14 B/P (MAP) 122/64 (83) O2 Delivery Room Air Capillary Refill : Progress Note #1: Progress Note Obtain labs with urinalysis and a CT scan of the abdomen pelvis. Ideally obtaining CT scan with IV contrast to help look for an abscess or fluid collection since he is reporting perirectal pain. Bladder scan showed greater than 350 mL of urine present. We will see how much urine is showing on the CT scan as well as have patient try to void here. If he does void we could repeat the bladder scan to see what the postvoid residual shows. He might require a catheter to drain his bladder. Progress Note #2: Progress Note Labs show WBC of 5.8 with anemia with Hgb 10.8. His Chemistry has elevated LFTs and Cr 1.25. Sodium 128 with glucose 494. CRP elevated to 8.5. UA shows glucose but no UTI. Progress Note #3: Progress Note Radiology read the CT scan is showing ascites and cirrhosis. There was no mention of any perirectal abscess. He does have a distended bladder despite having urinated shortly before going to CT. He appears to have some urinary retention. Will discuss with patient about catheter placement and possible pain medicine for his rectal pain. Progress Note #4: Progress Note Pt advised of urinary retention and no definite perirectal abscess. Advised that we could try antibiotic and if there is an infection trying to start in the perirectal area that this could help it heal up. He could also be doing sitz baths. Patient states he already has some loose stools at times and if the antibiotics may cause looser stools he would prefer to just try a sitz bath. In terms of the urinary retention he was still able to urinate some so at this point he did not want to go through a Brizuela catheter. He plans to follow-up with his primary provider this week about his problems and see if there is been any change or anything that could be done different. Counseled on follow-up and return precautions and stressed the importance of returning if he is unable to urinate and has increased pain. Diagnostic Imaging Diagonstic Imaging: CT Plain Films/CT/US/NM/MRI: abdomen, pelvis Comments NAME: BRIAN VELASCO [facility] REC#: [id number] PT STATUS: REG ER : 1935 PHYSICIAN: ROSLYN PERALES MD ADMIT DATE: 12/23/21/ER FS Draft Date of Exam:12/23/21 CT ABDOMEN/PELVIS W PROCEDURE: CT abdomen and pelvis with contrast. TECHNIQUE: Multiple contiguous axial images were obtained through the abdomen and pelvis after administration of intravenous contrast. Auto Exposure Controls were utilized during the CT exam to meet ALARA standards for radiation dose reduction. All CT scans use one or more of the following dose optimizing techniques: automated exposure control, MA and/or KvP adjustment based on patient size and exam type or iterative reconstruction. INDICATION: Abdominal distention, rectal pain, urinary hesitancy, worsening onset. COMPARISON: None. FINDINGS: Lung bases demonstrate no acute abnormality. The distal esophagus demonstrates mild wall thickening. There is mild wall thickening of the stomach as well. There are lower esophageal varices. The liver demonstrates a nodular contour. There is heterogeneous parenchyma. There is a mildly enhancing lesion measuring 4.4 x 3.6 cm in segment 7. The spleen is large, measuring 13.4 cm. The pancreas appears normal. The gallbladder contains stones and what appears to be debris. The adrenal glands appear normal. The kidneys demonstrate no enhancing lesions and no hydronephrosis. The bowel loops demonstrate mild wall thickening, which is likely reactive to the ascites. There is extensive diverticulosis of the distal colon without diverticulitis seen. There is wall thickening of the ascending colon which may be related to colitis or may be reactive to the liver changes. There are degenerative changes in the spine with no acute osseous abnormality seen. IMPRESSION: 1. Cirrhotic liver with mildly enhancing lesion in the right lobe, concerning for malignancy. 2. Lower esophageal varices, splenomegaly and moderate ascites, consistent with portal hypertension. 3. Wall thickening of the distal esophagus and stomach, may represent an esophagitis and/or gastritis. Wall thickening of the small bowel and the ascending colon is thought to be reactive to ascites and liver changes. Dictated on workstation # [id number] Dict: 12/23/21 1706 Trans: 12/23/21 1718 [facility] [id number] Interpreted by: LATONIA WYMAN MD Electronically signed by: Departure Impression Primary Impression: Urinary retention Additional Impression: Rectal pain Disposition: 01 HOME, SELF-CARE Condition: Stable Departure-Patient Inst. Decision time for Depature: 18:09 Referrals: NO,LOCAL PHYSICIAN (PCP/Family) Primary Care Physician Patient Instructions: How to Do a Sitz Bath, How to Use a Rectal Suppository or Ointment, Urinary Retention (DC) Add. Discharge Instructions: There is no definite abscess or pocket of infection per your rectum to be ca using pain. Try applying moist heat or sits baths to help this area not be so painful and inflamed. Your test did show some urinary retention. If you are not able to urinate and you are having pain in your lower abdomen you should return or be seen for p lacement of a Briz[place]a catheter to drain your bladder. Once this was placed you would have to leave it in for several days to let your bladder rest and recover from being overstretched For severe pain you could try taking the hydrocodone/acetaminophen pain pill. Check with your regular doctors in [place] this week about your symptoms All discharge instructions reviewed with patient and/or family. Voiced understanding. Scripts Hydrocodone/Acetaminophen (Hydrocodone-Acetamin 5-325 mg) 1 Each Tablet 1 TAB PO Q6H PRN for PAIN-SEVERE (8-10) for 3 Days, #12 TAB 0 Refills Prov: ROSLYN PERALES MD 12/23/21 ROSLYN PERALES MD Dec 23, 2021 16:12
[2021-12-23 16:16] LABS: BASOPHILS % (AUTO) 0 % (0-10); EOSINOPHILS # (AUTO) 0.1 10^3/uL (0.0-0.3); EOSINOPHILS % (AUTO) 1 % (0-10); HEMATOCRIT 31 % (40-54); HEMOGLOBIN 10.8 g/dL (13.3-17.7); LYMPHOCYTES # (AUTO) 1.2 10^3/uL (1.0-4.0); LYMPHOCYTES % (AUTO) 21 % (12-44); MEAN CORPUSCULAR HEMOGLOBIN 37 pg (25-34); MEAN CORPUSCULAR HGB CONC 34 g/dL (32-36); MEAN CORPUSCULAR VOLUME 108 fL (80-99); MEAN PLATELET VOLUME 9.8 fL (9.0-12.2); MONOCYTES # (AUTO) 0.9 10^3/uL (0.0-1.0); MONOCYTES % (AUTO) 16 % (0-12); NEUTROPHILS # (AUTO) 3.6 10^3/uL (1.8-7.8); NEUTROPHILS % (AUTO) 61 % (42-75); PLATELET COUNT 163 10^3/uL (130-400); WHITE BLOOD COUNT 5.8 10^3/uL (4.3-11.0)
[2021-12-23 16:30] LABS: BILIRUBIN,URINE NEGATIVE (NEGATIVE); CLARITY,URINE CLEAR; COLOR,URINE YELLOW; GLUCOSE, URINE (UA) 3+ (NEGATIVE); KETONES,URINE NEGATIVE (NEGATIVE); LEUKOCYTE ESTERASE ,URINE NEGATIVE (NEGATIVE); NITRITE,URINE NEGATIVE (NEGATIVE); PROTEIN,URINE NEGATIVE (NEGATIVE)
[2021-12-23] MEDS ORDERED: IOHEXOL 350 MG/ML 100 ML (OMNIPAQUE 350) VIAL IV ONE (16:30)
[2021-12-23] MEDS ORDERED: HOLD METFORMIN - RECEIVED CONTRAST 20 ML VIAL IV SCH (16:30)
[2021-12-23] MEDS ORDERED: NS 100 ML (IVPB) BAG IV ONE (16:30)
[2021-12-23] MEDS ORDERED: CATHETER FLUSH 10 ML SYR IV PRN (16:30)
[2021-12-23 16:34] LABS: BACTERIA,URINE TRACE /HPF; WBC,URINE 0-2 /HPF
[2021-12-23 16:36] LABS: POTASSIUM 4.5 MMOL/L (3.6-5.0)
[2021-12-23 16:37] LABS: BILIRUBIN,TOTAL 1.1 MG/DL (0.1-1.0); CALCIUM 8.9 MG/DL (8.5-10.1); CREATININE SERUM 1.25 MG/DL (0.60-1.30)
[2021-12-23 16:38] LABS: ALBUMIN 2.9 GM/DL (3.2-4.5); TOTAL PROTEIN 6.5 GM/DL (6.4-8.2)
--- NOTE | 2021-12-23 17:19 | Diagnostic Imaging Report ---
PROCEDURE: CT abdomen and pelvis with contrast. TECHNIQUE: Multiple contiguous axial images were obtained through the abdomen and pelvis after administration of intravenous contrast. Auto Exposure Controls were utilized during the CT exam to meet ALARA standards for radiation dose reduction. All CT scans use one or more of the following dose optimizing techniques: automated exposure control, MA and/or KvP adjustment based on patient size and exam type or iterative reconstruction. INDICATION: Abdominal distention, rectal pain, urinary hesitancy, worsening onset. COMPARISON: None. FINDINGS: Lung bases demonstrate no acute abnormality. The distal esophagus demonstrates mild wall thickening. There is mild wall thickening of the stomach as well. There are lower esophageal varices. The liver demonstrates a nodular contour. There is heterogeneous parenchyma. There is a mildly enhancing lesion measuring 4.4 x 3.6 cm in segment 7. The spleen is large, measuring 13.4 cm. The pancreas appears normal. The gallbladder contains stones and what appears to be debris. The adrenal glands appear normal. The kidneys demonstrate no enhancing lesions and no hydronephrosis. The bowel loops demonstrate mild wall thickening, which is likely reactive to the ascites. There is extensive diverticulosis of the distal colon without diverticulitis seen. There is wall thickening of the ascending colon which may be related to colitis or may be reactive to the liver changes. There are degenerative changes in the spine with no acute osseous abnormality seen. IMPRESSION: 1. Cirrhotic liver with mildly enhancing lesion in the right lobe, concerning for malignancy. 2. Lower esophageal varices, splenomegaly and moderate ascites, consistent with portal hypertension. 3. Wall thickening of the distal esophagus and stomach, may represent an esophagitis and/or gastritis. Wall thickening of the small bowel and the ascending colon is thought to be reactive to ascites and liver changes. Dictated by: Dictated on workstation # [id number]
[2021-12-23] MEDS ORDERED: ACHD5005 PO (18:14)
[2021-12-23 18:16] VITALS: BP 124/72
== END 2021-12-23 18:16 | disposition home or self-care (01) ==
LOC: EDUNIT# 15:33 → ER FS 15:34
DX: R33.9 Retention of urine, unspecified (principal); K62.89 Other specified diseases of anus and rectum
CPT/HCPCS: 36415; 74177; 80053; 81000; 82274; 83690; 85025; 85610; 85730; 86141; Q9967

== ENCOUNTER → 2022-02-19 | Outpatient (CLI) | payer MEDICARE ==
[2022-02-19 10:17] LABS: CALCIUM 8.8 MG/DL (8.5-10.1); CREATININE SERUM 0.93 MG/DL (0.60-1.30); POTASSIUM 4.6 MMOL/L (3.6-5.0)
== END ==
PROVIDERS: ATTEND Pediatrics
DX: D13.4 Benign neoplasm of liver (principal)
CPT/HCPCS: 80048

== ENCOUNTER 2022-05-28 11:26 | Emergency (ER) | payer MEDICARE ==
[2022-05-28 11:30] VITALS: BP 124/79
--- NOTE | 2022-05-28 11:36 | ED General ---
General Stated Complaint: BLEEDING STOMA History of Present Illness Date Seen by Provider: May 28, 2022 Time Seen by Provider: 11:36 Initial Comments 86-year-old male with PMH of liver failure/stomal prolapse/and colostomy, is here with complaints of a bleeding stoma which began today morning while he was sitting on the couch watching TV. Patient states that 1 full bag of bright red blood was drawn out and replaced with a second bag. Patient is on a second bag at this time in the ER with a little bit of bright red blood in the bag with very minimal oozing from the stomal site. Denies any strenuous exercise, falls or injuries, fever, dysuria, hematemesis, abdominal pain, dysuria. Allergies and Home Medications Allergies Coded Allergies: No Known Drug Allergies (Unverified , 12/30/19) Patient Home Medication List Home Medication List Reviewed: Yes Acetaminophen (Tylenol Extra Strength) 500 Mg Tablet, 1,000 MG PO Q8H PRN for PAIN-MILD (1-4), (Reported) Entered as Reported by: NANCY ESPARZA on 01/04/20 144 Hydrocodone/Acetaminophen (Hydrocodone-Acetamin 5-325 mg) 1 Each Tablet, 1 EACH PO Q6H PRN for PAIN-MODERATE (5-7), (Reported) Entered as Reported by: NANCY ESPARZA on 01/04/20 144 Hydrocodone/Acetaminophen (Hydrocodone-Acetamin 5-325 mg) 1 Each Tablet, 1 TAB PO Q6H PRN for PAIN-SEVERE (8-10) Prescribed by: ROSLYN PERALES on 12/23/211813 Losartan/Hydrochlorothiazide (Losartan-Hctz 100-12.5 mg Tab) 1 Each Tablet, 1 EA PO DAILY, (Reported) Entered as Reported by: NANCY ESPARZA on 01/04/20 144 Meloxicam (Meloxicam) 7.5 Mg Tablet, 7.5 MG PO DAILY, (Reported) Entered as Reported by: NANCY ESPARZA on 01/04/20 144 Metformin HCl (Metformin HCl) 1,000 Mg Tablet, 1,000 MG PO BID, (Reported) Entered as Reported by: NANCY ESPARZA on 01/04/201448 Review of Systems Review of Systems Constitutional: no symptoms reported EENTM: no symptoms reported Respiratory: no symptoms reported Gastrointestinal: no symptoms reported Genitourinary: no symptoms reported Musculoskeletal: no symptoms reported Skin: other (stomal bleeding) Psychiatric/Neurological: No Symptoms Reported Hematologic/Lymphatic: No Symptoms Reported Immunological/Allergic: no symptoms reported Past Slmiljt-Mamldu-Xedveu Hx Immunizations Up To Date Tetanus Booster (TDap): Unknown Seasonal Allergies Seasonal Allergies: No Past Medical History Surgery/Hospitalization HX: Cirrhosis with ascites, Elevated Ferritin level, Diabetes, Hypertension Surgeries: Yes (Colonoscopy, Surgery for Gastritis, R ankle fx, carpal tunnel, septoplasty) Orthopedic Respiratory: Yes Asthma Currently Using CPAP: No Currently Using BIPAP: No Cardiac: Yes Hypertension Neurological: No Genitourinary: Yes Benign Prostatic Hyperpl, Kidney Stones Gastrointestinal: Yes (Gastritis hx) Gastroesophageal Reflux Musculoskeletal: No Endocrine: Yes Diabetes, Non-Insulin dep HEENT: No Cancer: No Psychosocial: No Integumentary: No Blood Disorders: No Family Medical History Diabetes mellitus 19 MOTHER Physical Exam Vital Signs Vital Signs - First Documented 05/28/22 11:30 Temp 36.2 Pulse 93 Resp 18 B/P (MAP) 124/79 (94) Pulse Ox 100 O2 Delivery Room Air Capillary Refill : Height, Weight, BMI Height: '" Weight: lbs. oz. kg; 22.00 BMI Method: General Appearance: No Apparent Distress, WD/WN Neck: Full Range of Motion Respiratory: Chest Non Tender, Lungs Clear Cardiovascular: Regular Rate, Rhythm Gastrointestinal: Normal Bowel Sounds, Non Tender, Soft Back: Normal Inspection, No CVA Tenderness, No Vertebral Tenderness Neurologic/Psychiatric: Alert, Oriented x3 Skin: Other (Stomal bag shows some bright red blood at the bottom. Perimeter of stoma shows very minimal bruising and appears to be stopping. Prolapse of stoma seen. Healthy mucosa and surrounding skin.) Procedures/Interventions Suture Size: 4-0 Progress/Results/Core Measures Suspected Sepsis SIRS Temperature: Pulse: Respiratory Rate: Laboratory Tests 05/28/22 11:42: White Blood Count 4.5 Blood Pressure / Mean: Laboratory Tests 05/28/22 11:42: Creatinine 0.99, Platelet Count 141, Total Bilirubin 1.5H Results/Orders Lab Results Laboratory Tests Test 05/28/22 11:42 Range/Units White Blood Count 4.5 4.3-11.0 10^3/uL Red Blood Count 3.33 L 4.30-5.52 10^6/uL Hemoglobin 11.3 L 13.3-17.7 g/dL Hematocrit 34 L 40-54 % Mean Corpuscular Volume 101 H 80-99 fL Mean Corpuscular Hemoglobin 34 25-34 pg Mean Corpuscular Hemoglobin Concent 34 32-36 g/dL Red Cell Distribution Width 16.3 H 10.0-14.5 % Platelet Count 141 130-400 10^3/uL Mean Platelet Volume 11.2 9.0-12.2 fL Immature Granulocyte % (Auto) 0 % Neutrophils (%) (Auto) 56 42-75 % Lymphocytes (%) (Auto) 30 12-44 % Monocytes (%) (Auto) 12 0-12 % Eosinophils (%) (Auto) 2 0-10 % Basophils (%) (Auto) 0 0-10 % Neutrophils # (Auto) 2.5 1.8-7.8 10^3/uL Lymphocytes # (Auto) 1.4 1.0-4.0 10^3/uL Monocytes # (Auto) 0.5 0.0-1.0 10^3/uL Eosinophils # (Auto) 0.1 0.0-0.3 10^3/uL Basophils # (Auto) 0.0 0.0-0.1 10^3/uL Immature Granulocyte # (Auto) 0.0 0.0-0.1 10^3/uL Sodium Level 133 L 135-145 MMOL/L Potassium Level 4.4 3.6-5.0 MMOL/L Chloride Level 101 98-107 MMOL/L Carbon Dioxide Level 21 21-32 MMOL/L Anion Gap 11 5-14 MMOL/L Blood Urea Nitrogen 37 H 7-18 MG/DL Creatinine 0.99 0.60-1.30 MG/DL Estimat Glomerular Filtration Rate 75 BUN/Creatinine Ratio 37 Glucose Level 328 H 70-105 MG/DL Calcium Level 9.6 8.5-10.1 MG/DL Corrected Calcium 10.1 8.5-10.1 MG/DL Total Bilirubin 1.5 H 0.1-1.0 MG/DL Aspartate Amino Transf (AST/SGOT) 76 H 5-34 U/L Alanine Aminotransferase (ALT/SGPT) 71 H 0-55 U/L Alkaline Phosphatase 407 H 40-136 U/L Total Protein 7.3 6.4-8.2 GM/DL Albumin 3.4 3.2-4.5 GM/DL My Orders Orders - HARJIT CLARKE MD Cbc With Automated Diff (05/28/22 11:50) Comprehensive Metabolic Panel (05/28/22 11:50) Ua Culture If Indicated (05/28/22 11:50) Vital Signs/I&O 05/28/22 11:30 Temp 36.2 Pulse 93 Resp 18 B/P (MAP) 124/79 (94) Pulse Ox 100 O2 Delivery Room Air Capillary Refill : Progress Note : Progress Note 1. BLEEDING STOMA: - CBC: Hb stable - CMP: corroborates with liver failure - Called pt's Colorectal surgeon, Dr. Deshpande [facility] at [facility], and discussed pt via phone. Advised silver nitrate to stoma bleeding points, bandage, and larger stoma bag, and follow up in clinic. Recommendations carried out. - Silver nitrate applied to inferior perimeter of stoma with successful cessation of bleeding. Bag replaced. - Follow up with Colorectal surgery clinic within 7 days Departure Impression Primary Impression: Stoma bleed Disposition: HOME, SELF-CARE Condition: Improved Departure-Patient Inst. Referrals: NO,LOCAL PHYSICIAN (PCP/Family) Primary Care Physician Patient Instructions: Colostomy Care Add. Discharge Instructions: - Follow up with Colorectal surgery clinic within 7 days HARJIT CLARKE MD May 28, 2022 11:36
[2022-05-28 11:58] LABS: BASOPHILS % (AUTO) 0 % (0-10); EOSINOPHILS # (AUTO) 0.1 10^3/uL (0.0-0.3); EOSINOPHILS % (AUTO) 2 % (0-10); HEMATOCRIT 34 % (40-54); HEMOGLOBIN 11.3 g/dL (13.3-17.7); LYMPHOCYTES # (AUTO) 1.4 10^3/uL (1.0-4.0); LYMPHOCYTES % (AUTO) 30 % (12-44); MEAN CORPUSCULAR HEMOGLOBIN 34 pg (25-34); MEAN CORPUSCULAR HGB CONC 34 g/dL (32-36); MEAN CORPUSCULAR VOLUME 101 fL (80-99); MEAN PLATELET VOLUME 11.2 fL (9.0-12.2); MONOCYTES # (AUTO) 0.5 10^3/uL (0.0-1.0); MONOCYTES % (AUTO) 12 % (0-12); NEUTROPHILS # (AUTO) 2.5 10^3/uL (1.8-7.8); NEUTROPHILS % (AUTO) 56 % (42-75); PLATELET COUNT 141 10^3/uL (130-400); WHITE BLOOD COUNT 4.5 10^3/uL (4.3-11.0)
[2022-05-28 12:35] LABS: POTASSIUM 4.4 MMOL/L (3.6-5.0)
[2022-05-28 12:38] LABS: CREATININE SERUM 0.99 MG/DL (0.60-1.30)
[2022-05-28 12:39] LABS: BILIRUBIN,TOTAL 1.5 MG/DL (0.1-1.0); CALCIUM 9.6 MG/DL (8.5-10.1)
[2022-05-28 12:40] LABS: ALBUMIN 3.4 GM/DL (3.2-4.5); TOTAL PROTEIN 7.3 GM/DL (6.4-8.2)
== END 2022-05-28 12:54 | disposition home or self-care (01) ==
LOC: EDUNIT# 11:26 → ER FS 11:28
DX: K94.01 Colostomy hemorrhage (principal)
CPT/HCPCS: 36415; 80053; 85025

== ENCOUNTER 2023-03-18 08:15 | Emergency (ER) | payer MEDICARE ==
[~2023-03-18] VITALS: Ht 172.7 cm; Wt 68.4 kg
[2023-03-18 08:36] LABS: CLARITY,URINE CLEAR; GLUCOSE, URINE (UA) TRACE (NEGATIVE); KETONES,URINE NEGATIVE (NEGATIVE); LEUKOCYTE ESTERASE ,URINE NEGATIVE (NEGATIVE); NITRITE,URINE NEGATIVE (NEGATIVE); PH,URINE 5.5 (5-9); PROTEIN,URINE TRACE (NEGATIVE)
--- NOTE | 2023-03-18 08:50 | ED General ---
General Chief Complaint: Altered Mental Status Stated Complaint: AMS Nursing Triage Note: patient arrives via ems to room 5 with a c/o confusion, and activity intolerance. spouse states patient was unable to get up at home however she found him in the kitchen and was "confused talking about the back room". she stated he had used his walker to ambulate into the kitchen, "not sure how he got there, because he couldnt stand for me". hx of liver cancer, and chronic back pain. patient is A&O x2 asking where he is. 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 Source of Information: Patient, EMS, Family, Old Records Exam Limitations: No Limitations History of Present Illness Date Seen by Provider: Mar 18, 2023 Time Seen by Provider: 08:19 Initial Comments 87-year-old male with a past medical history of liver cancer s/p radiation, cirrhosis, chronic back pain coming in via EMS from home due to confusion. The patient's woke up, he was standing in the bathroom holding onto the sink as well as the door, not moving, not really responding to what she was asking him in the moment. She called 911 at that time. On route to the hospital, he started feeling better and was less confused. He has been eating and drinking normally, no chest pain, shortness of breath, abdominal pain, nausea, vomiting, diarrhea, focal weakness or numbness, vision changes, headache, dysuria, or any other concerns. He did have a remote fall a couple weeks ago. Otherwise denying any other acute complaints. Allergies and Home Medications Allergies Coded Allergies: No Known Drug Allergies (Unverified , 12/30/19) Patient Home Medication List Home Medication List Reviewed: Yes Acetaminophen (Tylenol Extra Strength) 500 Mg Tablet, 1,000 MG PO Q8H PRN for PAIN-MILD (1-4), (Reported) Entered as Reported by: NANCY ESPARZA on 01/04/20 1449 Hydrocodone/Acetaminophen (Hydrocodone-Acetamin 5-325 mg) 1 Each Tablet, 1 EACH PO Q6H PRN for PAIN-MODERATE (5-7), (Reported) Entered as Reported by: NANCY ESPARZA on 01/04/20 1449 Hydrocodone/Acetaminophen (Hydrocodone-Acetamin 5-325 mg) 1 Each Tablet, 1 TAB PO Q6H PRN for PAIN-SEVERE (8-10) Prescribed by: ROSLYN PERALES on 12/23/211813 Losartan/Hydrochlorothiazide (Losartan-Hctz 100-12.5 mg Tab) 1 Each Tablet, 1 EA PO DAILY, (Reported) Entered as Reported by: NANCY ESPARZA on 01/04/20 144 Meloxicam (Meloxicam) 7.5 Mg Tablet, 7.5 MG PO DAILY, (Reported) Entered as Reported by: NANCY ESPARZA on 01/04/20 144 Metformin HCl (Metformin HCl) 1,000 Mg Tablet, 1,000 MG PO BID, (Reported) Entered as Reported by: NANCY ESPARZA on 01/04/201448 Review of Systems Review of Systems Constitutional: No fever EENTM: no symptoms reported Respiratory: no symptoms reported Cardiovascular: no symptoms reported Gastrointestinal: no symptoms reported Genitourinary: no symptoms reported Musculoskeletal: no symptoms reported Skin: no symptoms reported Psychiatric/Neurological: See HPI Hematologic/Lymphatic: No Symptoms Reported Past Pvmmsyh-Oqalbz-Mgjmja Hx Patient Social History Tobacco Use?: No Use of E-Cig and/or Vaping dev: No Substance use?: No Alcohol Use?: No Pt feels they are or have been: No Immunizations Up To Date Tetanus Booster (TDap): Unknown First/Initial COVID19 Vaccinat: 2020 Second COVID19 Vaccination Jason: 2020 Third COVID19 Vaccination Date: 2020 Seasonal Allergies Seasonal Allergies: No Past Medical History Surgery/Hospitalization HX: Cirrhosis with ascites, Elevated Ferritin level, Diabetes, Hypertension Surgeries: Yes (Colonoscopy, Surgery for Gastritis, R ankle fx, carpal tunnel, septoplasty) Orthopedic Respiratory: Yes Asthma Currently Using CPAP: No Currently Using BIPAP: No Cardiac: Yes Hypertension Neurological: No Genitourinary: Yes Benign Prostatic Hyperpl, Kidney Stones Gastrointestinal: Yes (Gastritis hx) Gastroesophageal Reflux Musculoskeletal: No Endocrine: Yes Diabetes, Non-Insulin dep HEENT: No Cancer: No Psychosocial: No Integumentary: No Blood Disorders: No Family Medical History Diabetes mellitus 19 MOTHER Physical Exam Vital Signs Vital Signs - First Documented 03/18/23 08:17 Temp 36.0 Pulse 74 Resp 18 B/P (MAP) 120/67 (84) Pulse Ox 99 O2 Delivery Room Air Capillary Refill : Less Than 3 Seconds Height, Weight, BMI Height: '" Weight: lbs. oz. kg; 22.00 BMI Method: General Appearance: No Apparent Distress, WD/WN Eyes: Bilateral Eye Normal Inspection HEENT: PERRL/EOMI, Normal ENT Inspection, Pharynx Normal Neck: Full Range of Motion, Normal Inspection, Non Tender, Supple Respiratory: Chest Non Tender, Lungs Clear, Normal Breath Sounds, No Accessory Muscle Use, No Respiratory Distress Cardiovascular: Regular Rate, Rhythm, Systolic Murmur Gastrointestinal: Normal Bowel Sounds, Non Tender, Soft; No Guarding Back: Normal Inspection, No CVA Tenderness, No Vertebral Tenderness Extremity: Normal Capillary Refill, Normal Range of Motion, Non Tender, No Calf Tenderness, Pedal Edema Neurologic/Psychiatric: Alert, No Motor/Sensory Deficits, Normal Mood/Affect, vp lab II-XII Norm as Tested, Other (Oriented to person, place, and situation, does not know the date. No asterixis. Normal tododr-io-zdgo, normal visual raymundo and visual acuity) Skin: Normal Color, Warm/Dry Procedures/Interventions Suture Size: 4-0 Progress/Results/Core Measures Suspected Sepsis SIRS Temperature: Pulse: 74 Respiratory Rate: 18 Laboratory Tests 03/18/23 08:20: White Blood Count 4.4 Blood Pressure 120 /67 Mean: 84 Laboratory Tests 03/18/23 08:20: Platelet Count 126L 03/18/23 08:57: Creatinine 1.20, INR Comment 1.1, Total Bilirubin 3.3H Results/Orders Lab Results Laboratory Tests Test 03/18/23 08:20 03/18/23 08:57 Range/Units White Blood Count 4.4 4.3-11.0 10^3/uL Red Blood Count 2.28 L 4.30-5.52 10^6/uL Hemoglobin 8.7 L 13.3-17.7 g/dL Hematocrit 25 L 40-54 % Mean Corpuscular Volume 108 H 80-99 fL Mean Corpuscular Hemoglobin 38 H 25-34 pg Mean Corpuscular Hemoglobin Concent 35 32-36 g/dL Red Cell Distribution Width 19.0 H 10.0-14.5 % Platelet Count 126 L 130-400 10^3/uL Mean Platelet Volume 12.9 H 9.0-12.2 fL Immature Granulocyte % (Auto) 0 % Neutrophils (%) (Auto) 74 42-75 % Lymphocytes (%) (Auto) 13 12-44 % Monocytes (%) (Auto) 11 0-12 % Eosinophils (%) (Auto) 2 0-10 % Basophils (%) (Auto) 1 0-10 % Neutrophils # (Auto) 3.2 1.8-7.8 10^3/uL Lymphocytes # (Auto) 0.6 L 1.0-4.0 10^3/uL Monocytes # (Auto) 0.5 0.0-1.0 10^3/uL Eosinophils # (Auto) 0.1 0.0-0.3 10^3/uL Basophils # (Auto) 0.0 0.0-0.1 10^3/uL Immature Granulocyte # (Auto) 0.0 0.0-0.1 10^3/uL Urine Color DARK YELLOW Urine Clarity CLEAR Urine pH 5.5 5-9 Urine Specific Byers 1.025 H 1.016-1.022 Urine Protein TRACE H NEGATIVE Urine Glucose (UA) TRACE H NEGATIVE Urine Ketones NEGATIVE NEGATIVE Urine Nitrite NEGATIVE NEGATIVE Urine Bilirubin 2+ H NEGATIVE Urine Urobilinogen 1.0 < = 1.0 MG/DL Urine Leukocyte Esterase NEGATIVE NEGATIVE Urine RBC (Auto) NEGATIVE NEGATIVE Urine RBC RARE /HPF Urine WBC 2-5 /HPF Urine Squamous Epithelial Cells 2-5 /HPF Urine Crystals NONE /LPF Urine Bacteria FEW H /HPF Urine Casts PRESENT /LPF Urine Hyaline Casts 10-25 H /LPF Urine Mucus SMALL H /LPF Urine Culture Indicated NO Prothrombin Time 14.6 12.2-14.7 SEC INR Comment 1.1 0.8-1.4 Activated Partial Thromboplast Time 30 24-35 SEC Sodium Level 139 135-145 MMOL/L Potassium Level 3.9 3.6-5.0 MMOL/L Chloride Level 109 H 98-107 MMOL/L Carbon Dioxide Level 20 L 21-32 MMOL/L Anion Gap 10 5-14 MMOL/L Blood Urea Nitrogen 26 H 7-18 MG/DL Creatinine 1.20 0.60-1.30 MG/DL Estimat Glomerular Filtration Rate 59 BUN/Creatinine Ratio 22 Glucose Level 158 H 70-105 MG/DL Calcium Level 9.1 8.5-10.1 MG/DL Corrected Calcium 10.1 8.5-10.1 MG/DL Magnesium Level 1.9 1.6-2.4 MG/DL Total Bilirubin 3.3 H 0.1-1.0 MG/DL Aspartate Amino Transf (AST/SGOT) 86 H 5-34 U/L Alanine Aminotransferase (ALT/SGPT) 47 0-55 U/L Alkaline Phosphatase 436 H 40-136 U/L Troponin I < 0.30 <0.30 NG/ML Total Protein 6.2 L 6.4-8.2 GM/DL Albumin 2.7 L 3.2-4.5 GM/DL Lipase 20 8-78 U/L My Orders Orders - ASHLYN ADAMS MD Ua Culture If Indicated (03/18/23 08:30) Cbc With Automated Diff (03/18/23 08:45) Comprehensive Metabolic Panel (03/18/23 08:45) Lipase (03/18/23 08:45) Magnesium (03/18/23 08:45) Protime With Inr (03/18/23 08:45) Partial Thromboplastin Time (03/18/23 08:45) Troponin I Fs (03/18/23 08:45) Ct Head Wo (03/18/23 08:45) Chest 1 View Ap/Pa Only (03/18/23 08:45) Ct Abdomen/Pelvis W (03/18/23 10:20) Iohexol Injection (Omnipaque 350 Mg/Ml 1 (03/18/23 10:45) Received Contrast (Hold Metformin- Contr (03/18/23 10:45) Ns (Ivpb) (Sodium Chloride 0.9% Ivpb Bag (03/18/23 10:45) Medications Given in ED Current Medications Medications Dose Ordered Sig/Prosper Route Start Time Stop Time Status Last Admin Dose Admin Iohexol 100 ml ONCE ONCE IV 03/18/23 10:45 03/18/23 10:46 DC 03/18/23 10:36 80 ML Sodium Chloride 100 ml ONCE ONCE IV 03/18/23 10:45 03/18/23 10:46 DC 03/18/23 10:36 100 ML Vital Signs/I&O 03/18/23 08:17 Temp 36.0 Pulse 74 Resp 18 B/P (MAP) 120/67 (84) Pulse Ox 99 O2 Delivery Room Air Capillary Refill : Less Than 3 Seconds Blood Pressure Mean: 84 Progress Note : Progress Note 87-year-old male with above history coming in due to transient confusion. ABCs were intact and vitals were stable on presentation. NIH is 0 on presentation with no signs of stroke here. Physical exam within appearing slightly jaundi bernard, but no significant concerns. An IV was placed and basic labs were obtained and were significant for anemia, on review of the chart, has been anemic for years, normal creatinine at 1.2, elevated bilirubin at 3.3, normal INR at 1.1. Troponin is negative. His MELD score is 14 today. Chest x-ray ordered and interpreted by me showing no obvious pneumonia, pneumothorax, or acute abnormalities. CT head ordered and interpreted by me showing no obvious hemorrhage or large mass. These were also both read as negative for acute findings per the radiologist. I once again discussed with the patient and family, given he is back to his baseline, we are unclear what the etiology of this is. He does not have any asterixis today, unlikely that it is hepatic encephalopathy, although that could wax and wane. I was discussing with the patient potential discharge, at that point he mentioned that he had a recent hernia surgery. I looked at the wound, it appears clean, dry, intact, noninfected. Ordered a CT abdomen pelvis with contrast, and the mass in his liver does appear smaller from prior as the patient stated. No acute findings that were concerning on the CT abdomen pelvis. I personally ambulated the patient around the room, at 1 point I completely Damion, and he ambulated without assistance, and did not need any devices. He does seem to be back to baseline. I believe he stable for discha rge with outpatient follow-up. He was sent home with strict return precautions. Diagnostic Imaging Diagonstic Imaging: Xray (chest), CT (head) Comments [facility]. [place], [place] NAME: BRIAN VELASCO [facility] REC#: [id number] PT STATUS: REG ER : 1935 PHYSICIAN: ASHLYN ADAMS MD ADMIT DATE: 03/18/23/ER FS Signed Date of Exam:03/18/23 CT HEAD WO PROCEDURE: CT head without contrast. TECHNIQUE: Multiple contiguous axial images were obtained through the brain without the use of intravenous contrast. Auto Exposure Controls were utilized during the CT exam to meet ALARA standards for radiation dose reduction. INDICATION: Confusion COMPARISON: None Findings: Mild generalized cerebral volume loss. Mild nonspecific periventricular hypoattenuation.. No intra- or extra-axial mass or fluid collection. No acute hemorrhage. The ventricles are normal in size, shape, and morphology. The espinoza-white matter junction is normal. The subarachnoid cisterns are patent. The visualized paranasal sinuses are normal. The visualized portions of the orbits and globes are normal. The mastoid air cells are clear. The can technician topogram shows no lytic lesion or fracture. Impression: No acute intracranial hemorrhage. No large vascular territory pollack-white loss. No intracranial mass, midline shift, or hydrocephalus. Mild chronic small vessel ischemic disease. Mild global volume loss. Dictated by: Dictated on workstation # [id number] Dict: 03/18/23912 Trans: 03/18/23933 [facility] [place] [id number] Interpreted by: LILY RAMIREZ DO Electronically signed by: LILY RAMIREZ DO 03/18/23933 [facility] [place] [place] NAME: BRIAN VELASCO [facility] REC#: [id number] PT STATUS: REG ER : 1935 PHYSICIAN: ASHLYN ADAMS MD ADMIT DATE: 03/18/23/ER FS Draft Date of Exam:03/18/23 CHEST 1 VIEW AP/PA ONLY CLINICAL INDICATION: Patient is status post fall with altered mental status. EXAM: Portable chest x-ray, upright view. COMPARISON: None. FINDINGS: Lungs/pleura: Lungs are clear. There is no pneumothorax. There is no pleural effusion. Mediastinum: Unremarkable. Pulmonary vasculature: Unremarkable. Heart: Unremarkable. Bones/extrathoracic soft tissue: There are degenerative spurs involving the thoracic spine. IMPRESSION: There is no radiographic evidence of acute cardiopulmonary process. Dictated on workstation # [id number] Dict: 03/18/23917 Trans: 03/18/23922 [id number] Interpreted by: MORE OLIVIA MD Electronically signed by: [facility] [place] NAME: BRIAN VELASCO [facility] REC#: [id number] PT STATUS: REG ER : 1935 PHYSICIAN: ASHLYN ADAMS MD ADMIT DATE: 03/18/23/ER FS Draft Date of Exam:03/18/23 CT ABDOMEN/PELVIS W INDICATION: Abdominal pain, history of cirrhosis and liver cancer. TECHNIQUE: Multiple contiguous axial images were obtained through the abdomen and pelvis after administration of intravenous contrast. Auto Exposure Controls were utilized during the CT exam to meet ALARA standards for radiation dose reduction. All CT scans use one or more of the following dose optimizing techniques: automated exposure control, MA and/or KvP adjustment based on patient size and exam type or iterative reconstruction. Comparison made prior CT 12/23/21 Visualized portions of the lung bases are clear. There were no pleural fluid collections. There is no free intraperitoneal air. The liver shows a cirrhotic morphology with atrophy of the right lobe and hypertrophy of the left lobe and nodular contour. There is a mass in the right lobe of the liver superiorly. The overall lesion measuring about 4.1 x 4.1 cm, with a central hyperdense component. The hyperdense component appears decreased compared to the prior study, this may reflect posttreatment change. The overall size of the lesion is minimally changed. The spleen is mildly enlarged and appears similar to the prior study. The adrenals and pancreas and kidneys appear normal. There is a moderate amount of ascites. There is diffuse edema in the mesentery. There is no overt bowel obstruction. There is extensive sigmoid diverticulosis. There is prostatic enlargement. There are numerous gallstones in the gallbladder. IMPRESSION: Findings compatible with cirrhosis of the liver. There is a mass in the right lobe of the liver compatible with patient's known liver malignancy, the enhancing component is decreased compared to the prior study, but the overall lesion is unchanged in size and this may reflect posttreatment change. There is splenomegaly. There are varices in the left upper quadrant compatible with portal hypertension. There is a moderate amount of ascites. There are incidental gallstones. There is an ostomy in the left lower quadrant. There is prostatic enlargement. Dictated on workstation # [id number] Dict: 03/18/23 1048 Trans: 03/18/23 1057 [facility] [id number] Interpreted by: KRISTY SHEEHAN MD Electronically signed by: Departure Impression Primary Impression: Cirrhosis Qualified Codes: K74.5 - Biliary cirrhosis, unspecified Additional Impressions: Hyperbilirubinemia AMS (altered mental status) Qualified Codes: R41.0 - Disorientation, unspecified Disposition: 01 HOME, SELF-CARE Condition: Improved Departure-Patient Inst. Decision time for Depature: 11:15 Referrals: NO,LOCAL PHYSICIAN (PCP/Family) Primary Care Physician Patient Instructions: Alcohol Poisoning (DC), Cirrhosis (DC), Altered Mental Status Add. Discharge Instructions: We are unclear exactly what happened earlier when he was more confused. He does appear to be better now, and of course was able to walk around the ER without any assistance. It is possible the changes earlier were medication related or could be due to the cirrhosis making his mental status come and go. His bilirubin today was 3.3, INR 1.1, creatinine 1.2, sodium 139. His MELD score was 14. These are numbers that you can tell your regular doctor and oncologist if they ask. He had a CT of his head and CT abdomen and pelvis which did not show any new findings that were concerning. Please call his oncologist and schedule an appointment as soon as possible. ASHLYN ADAMS MD Mar 18, 2023 08:50
[2023-03-18 09:00] LABS: BASOPHILS % (AUTO) 1 % (0-10); EOSINOPHILS # (AUTO) 0.1 10^3/uL (0.0-0.3); EOSINOPHILS % (AUTO) 2 % (0-10); HEMATOCRIT 25 % (40-54); HEMOGLOBIN 8.7 g/dL (13.3-17.7); LYMPHOCYTES # (AUTO) 0.6 10^3/uL (1.0-4.0); LYMPHOCYTES % (AUTO) 13 % (12-44); MEAN CORPUSCULAR HEMOGLOBIN 38 pg (25-34); MEAN CORPUSCULAR HGB CONC 35 g/dL (32-36); MEAN CORPUSCULAR VOLUME 108 fL (80-99); MEAN PLATELET VOLUME 12.9 fL (9.0-12.2); MONOCYTES # (AUTO) 0.5 10^3/uL (0.0-1.0); MONOCYTES % (AUTO) 11 % (0-12); NEUTROPHILS # (AUTO) 3.2 10^3/uL (1.8-7.8); NEUTROPHILS % (AUTO) 74 % (42-75); PLATELET COUNT 126 10^3/uL (130-400); WHITE BLOOD COUNT 4.4 10^3/uL (4.3-11.0)
[2023-03-18 09:02] LABS: BILIRUBIN,URINE 2+ (NEGATIVE); COLOR,URINE DARK YELLOW; RBC,URINE RARE /HPF
[2023-03-18 09:03] LABS: BACTERIA,URINE FEW /HPF
[2023-03-18 09:13] LABS: INR 1.1 (0.8-1.4); PROTHROMBIN TIME PATIENT 14.6 SEC (12.2-14.7)
[2023-03-18 09:20] LABS: POTASSIUM 3.9 MMOL/L (3.6-5.0); SODIUM 139 MMOL/L (135-145)
[2023-03-18 09:21] LABS: ALANINE AMINOTRANSFERASE 47 U/L (0-55); ALBUMIN 2.7 GM/DL (3.2-4.5); ALKALINE PHOSPHATASE 436 U/L (40-136); BILIRUBIN,TOTAL 3.3 MG/DL (0.1-1.0); BUN/CREATININE RATIO 22; CALCIUM 9.1 MG/DL (8.5-10.1); CARBON DIOXIDE 20 MMOL/L (21-32); CHLORIDE 109 MMOL/L (98-107); GFR ESTIMATED 59; GLUCOSE 158 MG/DL (70-105); LIPASE 20 U/L (8-78); MAGNESIUM 1.9 MG/DL (1.6-2.4); TOTAL PROTEIN 6.2 GM/DL (6.4-8.2)
--- NOTE | 2023-03-18 09:23 | Diagnostic Imaging Report ---
CLINICAL INDICATION: Patient is status post fall with altered mental status. EXAM: Portable chest x-ray, upright view. COMPARISON: None. FINDINGS: Lungs/pleura: Lungs are clear. There is no pneumothorax. There is no pleural effusion. Mediastinum: Unremarkable. Pulmonary vasculature: Unremarkable. Heart: Unremarkable. Bones/extrathoracic soft tissue: There are degenerative spurs involving the thoracic spine. IMPRESSION: There is no radiographic evidence of acute cardiopulmonary process. Dictated by: Dictated on workstation # [id number]
--- NOTE | 2023-03-18 09:36 | Diagnostic Imaging Report ---
PROCEDURE: CT head without contrast. TECHNIQUE: Multiple contiguous axial images were obtained through the brain without the use of intravenous contrast. Auto Exposure Controls were utilized during the CT exam to meet ALARA standards for radiation dose reduction. INDICATION: Confusion COMPARISON: None Findings: Mild generalized cerebral volume loss. Mild nonspecific periventricular hypoattenuation.. No intra- or extra-axial mass or fluid collection. No acute hemorrhage. The ventricles are normal in size, shape, and morphology. The espinoza-white matter junction is normal. The subarachnoid cisterns are patent. The visualized paranasal sinuses are normal. The visualized portions of the orbits and globes are normal. The mastoid air cells are clear. The auto body straightener topogram shows no lytic lesion or fracture. Impression: No acute intracranial hemorrhage. No large vascular territory pollack-white loss. No intracranial mass, midline shift, or hydrocephalus. Mild chronic small vessel ischemic disease. Mild global volume loss. Dictated by: Dictated on workstation # [id number]
[2023-03-18] MEDS ORDERED: IOHEXOL 350 MG/ML 100 ML (OMNIPAQUE 350) VIAL IV ONE (10:45)
[2023-03-18] MEDS ORDERED: NS 100 ML (IVPB) BAG IV ONE (10:45)
[2023-03-18] MEDS ORDERED: HOLD METFORMIN - RECEIVED CONTRAST 20 ML VIAL IV SCH (10:45)
--- NOTE | 2023-03-18 10:57 | Diagnostic Imaging Report ---
INDICATION: Abdominal pain, history of cirrhosis and liver cancer. TECHNIQUE: Multiple contiguous axial images were obtained through the abdomen and pelvis after administration of intravenous contrast. Auto Exposure Controls were utilized during the CT exam to meet ALARA standards for radiation dose reduction. All CT scans use one or more of the following dose optimizing techniques: automated exposure control, MA and/or KvP adjustment based on patient size and exam type or iterative reconstruction. Comparison made prior CT 12/23/21 Visualized portions of the lung bases are clear. There were no pleural fluid collections. There is no free intraperitoneal air. The liver shows a cirrhotic morphology with atrophy of the right lobe and hypertrophy of the left lobe and nodular contour. There is a mass in the right lobe of the liver superiorly. The overall lesion measuring about 4.1 x 4.1 cm, with a central hyperdense component. The hyperdense component appears decreased compared to the prior study, this may reflect posttreatment change. The overall size of the lesion is minimally changed. The spleen is mildly enlarged and appears similar to the prior study. The adrenals and pancreas and kidneys appear normal. There is a moderate amount of ascites. There is diffuse edema in the mesentery. There is no overt bowel obstruction. There is extensive sigmoid diverticulosis. There is prostatic enlargement. There are numerous gallstones in the gallbladder. IMPRESSION: Findings compatible with cirrhosis of the liver. There is a mass in the right lobe of the liver compatible with patient's known liver malignancy, the enhancing component is decreased compared to the prior study, but the overall lesion is unchanged in size and this may reflect posttreatment change. There is splenomegaly. There are varices in the left upper quadrant compatible with portal hypertension. There is a moderate amount of ascites. There are incidental gallstones. There is an ostomy in the left lower quadrant. There is prostatic enlargement. Dictated by: Dictated on workstation # [id number]
[2023-03-18 11:18] VITALS: BP 112/71
== END 2023-03-18 11:20 | disposition home or self-care (01) ==
LOC: ER FS 08:15 → EDUNIT# 08:15 → ER FS 11:20
DX: K74.60 Unspecified cirrhosis of liver (principal); E80.6 Other disorders of bilirubin metabolism; D64.9 Anemia, unspecified; R41.82 Altered mental status, unspecified
CPT/HCPCS: 36415; 70450; 71045; 74177; 80053; 81000; 83690; 83735; 84484; 85025; 85610; 85730; Q9967

== ENCOUNTER 2023-03-29 06:52 | Emergency (ER) | payer MEDICARE ==
[~2023-03-29] VITALS: Ht 172.7 cm; Wt 72.6 kg
[2023-03-29] MEDS ORDERED: NS IV 1000 ML 1,000 ML IV STA ×2 (07:17→07:56)
[2023-03-29] MEDS ORDERED: fentaNYL INJ 100 MCG/2 ML AMP IVP STA ×2 (07:17→09:26)
[2023-03-29] MEDS ORDERED: ONDANSETRON 4 MG/2 ML (SDV) Z0FRAN IVP STA (07:17)
[2023-03-29 07:23] LABS: BASOPHILS % (AUTO) 1 % (0-10); EOSINOPHILS % (AUTO) 2 % (0-10); HEMATOCRIT 32 % (40-54); HEMOGLOBIN 10.3 g/dL (13.3-17.7); LYMPHOCYTES # (AUTO) 0.4 10^3/uL (1.0-4.0); LYMPHOCYTES % (AUTO) 23 % (12-44); MEAN CORPUSCULAR HEMOGLOBIN 38 pg (25-34); MEAN CORPUSCULAR HGB CONC 32 g/dL (32-36); MEAN CORPUSCULAR VOLUME 117 fL (80-99); MEAN PLATELET VOLUME 11.8 fL (9.0-12.2); MONOCYTES # (AUTO) 0.1 10^3/uL (0.0-1.0); MONOCYTES % (AUTO) 7 % (0-12); NEUTROPHILS # (AUTO) 1.2 10^3/uL (1.8-7.8); NEUTROPHILS % (AUTO) 67 % (42-75); PLATELET COUNT 121 10^3/uL (130-400); WHITE BLOOD COUNT 1.8 10^3/uL (4.3-11.0)
--- NOTE | 2023-03-29 07:26 | ED Abdominal Pain ---
General Chief Complaint: Abdominal/GI Problems Stated Complaint: ABD PAIN,NAUSEA,VOMITING Source of Information: Patient, Old Records, Spouse History of Present Illness Date Seen by Provider: Mar 29, 2023 Time Seen by Provider: 06:56 Initial Comments 87-year-old male presenting with complaints of recurrent abdominal pain that is diffuse and going into his back as well as nausea and vomiting that started at 2 AM. He states he has had similar episodes previously but this 1 was lasting longer. He recently had surgery for hernia approximately 2 weeks ago. This was done at [facility] in [place]. He was having nausea and dry heaves this morning along with the diffuse abdominal pain. He is prescribed tramadol to try and help with pain but he says that it is not helping. He continues to have some yellowish brown-colored output in his ostomy. He states that there is been no change in that. He denies any pain or burning with urination. He was seen in the emergency department here in [place] on 18 March for similar complaints and found to have cirrhosis with ascites Timing/Duration: 4-6 Hours Severity/Quality: Severe, Full, Sharp Location: Generalized Abdomen Radiation: Back Activities at Onset: Rest Modifying Factors: Worsens With Movement, Worsens With Palpation Associated Symptoms: Back Pain; No Chest Pain, No Diaphoresis, No Fever/Chills; Fatigue, Heartburn, Nausea/Vomiting, Shortness of Air, Swelling/Mass in Abdomen, Weakness Allergies and Home Medications Allergies Coded Allergies: No Known Drug Allergies (Unverified , 12/30/19) Patient Home Medication List Home Medication List Reviewed: Yes Acetaminophen (Tylenol Extra Strength) 500 Mg Tablet, 1,000 MG PO Q8H PRN for PAIN-MILD (1-4), (Reported) Entered as Reported by: NANCY ESPARZA on 01/04/20 1449 Hydrocodone/Acetaminophen (Hydrocodone-Acetamin 5-325 mg) 1 Each Tablet, 1 EACH PO Q6H PRN for PAIN-MODERATE (5-7), (Reported) Entered as Reported by: NANCY ESPARZA on 01/04/20 1449 Hydrocodone/Acetaminophen (Hydrocodone-Acetamin 5-325 mg) 1 Each Tablet, 1 TAB PO Q6H PRN for PAIN-SEVERE (8-10) Prescribed by: ROSLYN PERALES on 12/23/21 5526 Losartan/Hydrochlorothiazide (Losartan-Hctz 100-12.5 mg Tab) 1 Each Tablet, 1 EA PO DAILY, (Reported) Entered as Reported by: NANCY ESPARZA on 01/04/201448 Meloxicam (Meloxicam) 7.5 Mg Tablet, 7.5 MG PO DAILY, (Reported) Entered as Reported by: NANCY ESPARZA on 01/04/201448 Metformin HCl (Metformin HCl) 1,000 Mg Tablet, 1,000 MG PO BID, (Reported) Entered as Reported by: NANCY ESPARZA on 01/04/201448 Review of Systems Review of Systems Constitutional: No chills, No fever; malaise, weakness EENTM: No Symptoms Reported Respiratory: See HPI, Shortness of Air Cardiovascular: Denies Chest Pain; Palpitations Gastrointestinal: See HPI, Abdominal Pain, Nausea, Poor Appetite, Vomiting Genitourinary: Denies Pain Musculoskeletal: back pain Skin: No rash Psychiatric/Neurological: Denies Headache Past Texehjp-Ajmljt-Yrlctg Hx Patient Social History Tobacco Use?: No Substance use?: No Alcohol Use?: No Pt feels they are or have been: No Immunizations Up To Date Tetanus Booster (TDap): Unknown First/Initial COVID19 Vaccinat: 2020 Second COVID19 Vaccination Jason: 2020 Third COVID19 Vaccination Date: 2020 Seasonal Allergies Seasonal Allergies: No Past Medical History Surgery/Hospitalization HX: Cirrhosis with ascites, Elevated Ferritin level, Diabetes Insulin Dependent, Hypertension Surgeries: Yes (Colonoscopy, Surgery for Gastritis, R ankle fx, carpal tunnel, septoplasty) Orthopedic Respiratory: Yes Asthma Currently Using CPAP: No Currently Using BIPAP: No Cardiac: Yes Hypertension Neurological: No Genitourinary: Yes Benign Prostatic Hyperpl, Kidney Stones Gastrointestinal: Yes (Gastritis hx) Gastroesophageal Reflux Musculoskeletal: No Endocrine: Yes Diabetes, Non-Insulin dep HEENT: No Cancer: No Psychosocial: No Integumentary: No Blood Disorders: No Family Medical History Diabetes mellitus 19 MOTHER Physical Exam Vital Signs Vital Signs - First Documented 03/29/23 07:00 Temp 37.1 Pulse 125 Resp 18 B/P (MAP) 130/79 (96) Pulse Ox 96 O2 Delivery Room Air Capillary Refill : Height/Weight/BMI Height: '" Weight: lbs. oz. kg; 22.00 BMI Method: General Appearance: moderate distress, other (chronically ill appearing) HEENT: No pharynx normal (slightly dry mucous membranes) Respiratory: chest non-tender, no respiratory distress, no accessory muscle use, decreased breath sounds Cardiovascular: normal peripheral pulses, tachycardia Gastrointestinal: soft, no pulsatile mass, abnormal bowel sounds (hypoactive), distended; No rebound; tenderness (diffuse tenderness to palpation) Rectal: deferred Extremities: normal range of motion, non-tender, normal capillary refill, pedal edema (BLE) Neurologic/Psychiatric: alert, oriented x 3 Skin: warm/dry, pallor Images 1 - diffuse abdominal pain and distention 2 - colostomy with yellow/brown colored stool in ostomy bag Focused Exam Sepsis Stage: Ruled Out Reason for ruling out sepsis: No source infection, low WBC rather than elevation Lactate Level 03/29/23 07:10: Lactic Acid Level 3.84*H 03/29/23 09:05: Lactic Acid Level 2.81*H Time of Focused Exam: 09:30 Respiratory: Chest Non Tender, Lungs Clear, No Accessory Muscle Use, No Respiratory Distress, Decreased Breath Sounds Cardiovascular: Normal Peripheral Pulses, Tachycardia (improved heart rate from 125-130 down now to 100-108) Capillary Refill: Less Than 3 Seconds Peripheral Pulses: 2+ Carotid (R), 2+ Carotid (L), 2+ Radial Pulses (R), 2+ Radial Pulses (L) Skin: warm/dry, pallor Lactic Acid Level Laboratory Tests Test 03/29/23 07:10 03/29/23 09:05 Lactic Acid Level 3.84 MMOL/L (0.50-2.00) *H 2.81 MMOL/L (0.50-2.00) *H Within 3hrs of presentation: Admin fluids, Admin ABX, Blood cultures prior to ABX's, Focus exam, Lactate level Procedures/Interventions Suture Size: 4-0 Progress/Results/Core Measures Results/Orders Lab Results Laboratory Tests Test 03/29/23 07:10 03/29/23 09:01 03/29/23 09:05 03/29/23 09:42 Range/Units White Blood Count 1.8 L 4.3-11.0 10^3/uL Red Blood Count 2.72 L 4.30-5.52 10^6/uL Hemoglobin 10.3 L 13.3-17.7 g/dL Hematocrit 32 L 40-54 % Mean Corpuscular Volume 117 H 80-99 fL Mean Corpuscular Hemoglobin 38 H 25-34 pg Mean Corpuscular Hemoglobin Concent 32 32-36 g/dL Red Cell Distribution Width 19.1 H 10.0-14.5 % Platelet Count 121 L 130-400 10^3/uL Mean Platelet Volume 11.8 9.0-12.2 fL Immature Granulocyte % (Auto) 1 % Neutrophils (%) (Auto) 67 42-75 % Lymphocytes (%) (Auto) 23 12-44 % Monocytes (%) (Auto) 7 0-12 % Eosinophils (%) (Auto) 2 0-10 % Basophils (%) (Auto) 1 0-10 % Neutrophils # (Auto) 1.2 L 1.8-7.8 10^3/uL Lymphocytes # (Auto) 0.4 L 1.0-4.0 10^3/uL Monocytes # (Auto) 0.1 0.0-1.0 10^3/uL Eosinophils # (Auto) 0.0 0.0-0.3 10^3/uL Basophils # (Auto) 0.0 0.0-0.1 10^3/uL Immature Granulocyte # (Auto) 0.0 0.0-0.1 10^3/uL Percent Immature Platelet Fraction 6.0 0.0-7.6 % Sodium Level 138 135-145 MMOL/L Potassium Level 3.9 3.6-5.0 MMOL/L Chloride Level 105 98-107 MMOL/L Carbon Dioxide Level 20 L 21-32 MMOL/L Anion Gap 13 5-14 MMOL/L Blood Urea Nitrogen 29 H 7-18 MG/DL Creatinine 1.25 0.60-1.30 MG/DL Estimat Glomerular Filtration Rate 56 BUN/Creatinine Ratio 23 Glucose Level 56 *L 70-105 MG/DL Lactic Acid Level 3.84 *H 2.81 *H 0.50-2.00 MMOL/L Calcium Level 9.7 8.5-10.1 MG/DL Corrected Calcium 10.6 H 8.5-10.1 MG/DL Total Bilirubin 4.6 H 0.1-1.0 MG/DL Aspartate Amino Transf (AST/SGOT) 94 H 5-34 U/L Alanine Aminotransferase (ALT/SGPT) 52 0-55 U/L Alkaline Phosphatase 405 H 40-136 U/L Troponin I < 0.30 < 0.30 <0.30 NG/ML C-Reactive Protein 3.08 H <0.50 MG/DL Pro-B-Type Natriuretic Peptide 490.6 H <450.0 PG/ML Total Protein 6.7 6.4-8.2 GM/DL Albumin 2.9 L 3.2-4.5 GM/DL Lipase 24 8-78 U/L Glucometer 62 L 70-110 MG/DL My Orders Orders - ROSLYN PERALES MD Comprehensive Metabolic Panel (03/29/23 07:14) Lipase (03/29/23 07:14) Ua Culture If Indicated (03/29/23 07:14) Ed Iv/Invasive Line Start (03/29/23 07:14) Cbc With Automated Diff (03/29/23 07:14) Ct Abdomen/Pelvis W (03/29/23 07:14) Blood Culture (03/29/23 07:14) Crp Fs (03/29/23 07:14) Ekg Tracing (03/29/23 07:14) Monitor-Rhythm Ecg Trace Only (03/29/23 07:14) Troponin I Fs (03/29/23 07:14) Probnp Fs (03/29/23 07:14) Lactic Acid Analyzer (03/29/23 07:14) Ns Iv 1000 Ml (Sodium Chloride 0.9%) (03/29/23 07:17) Fentanyl Inj (Sublimaze Injection) (03/29/23 07:17) Ondansetron Injection (Zofran Injectio (03/29/23 07:17) Iohexol Injection (Omnipaque 350 Mg/Ml 1 (03/29/23 07:30) Di Iv Start (Assessment) .IV start (03/29/23 07:18) Received Contrast (Hold Metformin- Contr (03/29/23 07:30) Ns (Ivpb) (Sodium Chloride 0.9% Ivpb Bag (03/29/23 07:30) Dextrose 24 Gm Oral Gel (Insta Glucose (03/29/23 08:00) Ns Iv 1000 Ml (Sodium Chloride 0.9%) (03/29/23 07:56) Pantoprazole Injection (Protonix Injecti (03/29/23 08:13) Antacid Suspension (Mylanta Suspension (03/29/23 08:13) Ceftriaxone Iv/Im (Rocephin Iv/Im) (03/29/23 08:44) Fentanyl Inj (Sublimaze Injection) (03/29/23 09:26) Troponin I Fs (03/29/23 09:26) Medications Given in ED Current Medications Medications Dose Ordered Sig/Prosper Route Start Time Stop Time Status Last Admin Dose Admin Dextrose 14 gm ONCE ONCE PO 03/29/23 08:00 03/29/23 08:01 DC 03/29/23 08:13 14 GM Iohexol 75 ml ONCE ONCE IV 03/29/23 07:30 03/29/23 07:31 DC 03/29/23 07:51 75 ML Sodium Chloride 100 ml ONCE ONCE IV 03/29/23 07:30 03/29/23 07:31 DC 03/29/23 07:52 100 ML Vital Signs/I&O 03/29/23 03/29/23 07:00 11:15 Temp 37.1 Pulse 125 101 Resp 18 26 B/P (MAP) 130/79 (96) 87/53 Pulse Ox 96 96 O2 Delivery Room Air Room Air Admisison Planning May Need Admission (Planning): 07:00 Progress Progress Note #1: Progress Note Potential diagnosis of ischemic bowel, bowel obstruction, GERD, spontaneous bacterial peritonitis, diverticulitis, colitis, pneumonia, pyelonephritis. Placed on cardiac telemetry monitoring and initially his cardiac telemetry shows sinus tachycardia with a heart rate in the 120s. Establish peripheral IV access and check labs to look at complete blood count, comprehensive metabolic profile, lipase, blood cultures, lactic acid, urinalysis, troponin, proBNP, CRP. CT scan of the abdomen and pelvis to evaluate for pathology of causing his symptoms of pain. Administer normal saline 1 L IV fluid bolus for hydration, Zofran 4 mg IV for nausea and vomiting, fentanyl 50 mcg IV for abdominal pain. Obtain ECG to look for cardiac ischemia or arrhythmia. Progress Note #2: Time: 07:39 Progress Note Lab called to report that his lactic acid was elevated to 3.84. His complete b lood count showed low white blood cell count of 1.8 with 67% neutrophils and 23% lymphocytes. His hemoglobin showed anemia with a count of 10.3. He had mild thrombocytopenia with platelets of 121. His comprehensive metabolic panel showed sodium 138, potassium 3.9, BUN of 29, creatinine 1.25. His glucose was low at 56. His total bilirubin was elevated to 4.6 with an AST of 94 which was also elevated. His ALT was in the normal range of 52. His alkaline phosphatase was slightly elevated to 405. He had a negative troponin of less than 0.3. His proBNP was slightly elevated to 490 and he had a normal lipase of 24. Administer normal saline 1 L IV fluid bolus for his elevated lactic acid given oral glucose to try and help with his hypoglycemia. Unsure of the source of infection but causes low white count and elevated lactic acid. We will hold off on antibiotic until we get the CT scan and urinalysis to see if there might be signs of ischemic bowel or UTI. 0810 after the oral glucose patient reports that his heartburn was feeling worse and states he has had some heartburn for the last few hours. Administer Protonix 40 mg IV along with Maalox 30 mils p.o. On his electrocardiogram that shows a sinus tachycardia with occasional supraventricular premature complexes. He does have ST depression concerning for subendocardial injury but no ST elevation. There is no prior tracing available for comparison. On my personal review and interpretation of his CT scan of the abdomen and pelvis with IV contrast he does have a large amount of ascites but did not appreciate acute bowel obstruction. In the clinic he had some diverticulosis but did not appreciate acute stranding for diverticulitis. He reports his pain is improved with treatment and was asking about getting pain medicine for home. 0820 I reviewed the radiologist report on the CT scan abdomen pelvis and they felt that he had increasing ascites along with increased portal vein thrombosis. He had findings for portal hypertension and colon wall bowel thickening that they felt was consistent with portal hypertensive colopathy. With his increased portal vein thrombosis as well as the colopathy of his liver and increased ascites with elevated lactic acid and low white blood cell count as well as ST depression on his electrocardiogram concerning for subendocardial injury will check with the providers at [facility] to see if they would take him and transfer. He would need GI and hepatology as well as possibly cardiology and continued monitoring with hydration. Will order a broad-spectrum antibiotic for possible infection and with his low white count and elevated lactic acid. However this might be increased due to his portal hypertension and portal hypertensive colopathy with increasing portal vein thrombosis. Progress Note #3: Progress Note 0949 the repeat lactic acid was improved to 2.8 from 3.8. His repeat troponin is still pending. 0950 TEOFILO Samuel from [facility] called back to state that they did not have beds and a hospitalist should be calling soon to discuss the case with me. Initial ECG Impression Date: Mar 29, 2023 Initial ECG Impression Time: 08:10 Initial ECG Rate: 110 Initial ECG Rhythm: S.Tach Initial ECG Comparisson: No Previous ECG Available Comment My personal interpretation and review his electrocardiogram shows sinus tachycardia with occasional supraventricular premature complexes and a rate of 110 bpm. VA interval 185 ms. Appears to have a Left axis deviation. He has ST depression in for possible subendocardial injury or myocardial infarction. His QT interval is 297 ms with a QTc interval 362 ms. He has no prior tracing available for comparison Diagnostic Imaging Diagonstic Imaging: CT Plain Films/CT/US/NM/MRI: abdomen, pelvis Comments [facility] [place] NAME: BRIAN VELASCO [facility] REC#: [id number] PT STATUS: REG ER : 1935 PHYSICIAN: ROSLYN PERALES MD ADMIT DATE: 03/29/23/ER FS Draft Date of Exam:03/29/23 CT ABDOMEN/PELVIS W EXAMINATION: CT abdomen and pelvis with intravenous contrast. TECHNIQUE: Multiple contiguous axial images were obtained through the abdomen and pelvis after the uneventful administration of intravenous contrast. All CT scans use one or more of the following dose optimizing techniques: automated exposure control, MA and/or KvP adjustment based on patient size and exam type or iterative reconstruction. HISTORY: Abdominal pain, nausea and vomiting COMPARISON: 03/18/2023 FINDINGS: Limited views of the lower thorax show small right pleural effusion. Liver is cirrhotic. There is a lesion in the right liver. The enhancing component measures 2.3 x 2.3 cm, previously 2.6 x 2.6 cm. No new liver lesion is seen. 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 No biliary ductal dilation. There are stones in the gallbladder. Pancreas is normal. Spleen is normal. Adrenal glands are normal. The kidneys are normal. There is no hydronephrosis. Urinary bladder is normal. There has been a transurethral resection of the prostate. There is wall thickening of the ascending colon likely representing portal hypertensive colopathy. There is diverticulosis without diverticulitis. Large amount of free fluid is present. No free air. There is free fluid within several small ventral abdominal hernias. There has been a right inguinal hernia repair. There is an ostomy in the left abdomen. No abdominal or pelvic lymphadenopathy. Aorta is normal in caliber without aneurysm. There are no suspicious osseus lesions. There is an unchanged T12 moderate compression fracture. IMPRESSION: 1. Cirrhotic liver with continued decrease in size of the enhancing components of a right liver lesion. 2. Increasing right portal vein thrombus. 3. Large amount of ascites. 4. Wall thickening of the ascending colon favored to reflect portal hypertensive colopathy. Dictated on workstation # [id number] Dict: 03/29/23 0751 Trans: 03/29/23 0810 [id number] Interpreted by: ERVIN CARNEY MD Electronically signed by: Reviewed: Reviewed by Me (I reviewed the radiologist report on the CT scan abdomen pelvis at 0820) Critical Care Note Critical Care Total Time (minutes) 60 minutes Progress I spent at least 60 minutes of critical care time with the patient. Time excludes separately billable procedures. Time was spent in obtaining history from patient and spouse as well as previous emergency department visits in the EMR, ordering test and reviewing results, ordering interventions and reviewing response, discussion with consultants, discussion with patient and spouse, documentation in the chart. Patient was at risk of cardiovascular compromise and collapse with his tachycardia, diffuse abdominal pain, elevated lactic acid and worsening findings of cirrhosis and ascites. He required my immediate and direct intervention and management to help stabilize his care and arrange for transfer to a higher level of care. Departure Impression Primary Impression: Diffuse abdominal pain Additional Impressions: Nausea and vomiting Qualified Codes: R11.2 - Nausea with vomiting, unspecified Cirrhosis of liver with ascites Qualified Codes: K74.60 - Unspecified cirrhosis of liver; R18.8 - Other ascites Portal vein thrombosis Elevated lactic acid level Disposition: [facility] Condition: Critical Transfer Transfer Reason: Exceeds level of care (Needs Hepatology/GI, Continuity of care at [facility]) Time Spoke to Accepting Phy: 10:11 Transfer Progress Notes Discussed with Dr. Grace, hospitalist for [facility]. I reviewed the patient's presentation with this increasing abdominal pain and abdominal girth as well as nausea and vomiting. His vital signs that showed tachycardia on arrival but he was afebrile and had stable blood pressure. His labs had shown low white blood cell count to 1.8 and anemia with hemoglobin of 10.3. His LFTs were increased with his bilirubin up to 4.6 from March 18 when it was just over 3. He has an elevated lactic acid to 3.84. He had findings for portal vein thrombosis that appear to be worsening as well as increased ascites to his abdomen compared to the CT from March 18. He was given a gram of Rocephin IV as well as 2 L of normal saline IV fluid bolus for his elevated lactic acid of 3.84. His troponin was negative at less than 0.3 and was repeated after 2 hours and was still less than 0.3. His proBNP was 490 but when age-adjusted was not showing significant increase. I felt that he needed GI and/or hepatology with possible paracentesis to evaluate his ascites. He may need a TIPS procedure or something for the portal vein hypertension and thrombosis. Dr. Grace was agreeable to the transfer and accepted the patient. He will have the transfer center called back with a room assignment when available. Transfer Facility: [facility] Method of Transfer: EMS Departure-Patient Inst. Referrals: NO,LOCAL PHYSICIAN (PCP/Family) Primary Care Physician ROSLYN PERALES MD Mar 29, 2023 07:26
[2023-03-29] MEDS ORDERED: IOHEXOL 350 MG/ML 100 ML (OMNIPAQUE 350) VIAL IV ONE (07:30)
[2023-03-29] MEDS ORDERED: HOLD METFORMIN - RECEIVED CONTRAST 20 ML VIAL IV SCH (07:30)
[2023-03-29] MEDS ORDERED: NS 100 ML (IVPB) BAG IV ONE (07:30)
[2023-03-29 07:49] LABS: ALANINE AMINOTRANSFERASE 52 U/L (0-55); ALBUMIN 2.9 GM/DL (3.2-4.5); ALKALINE PHOSPHATASE 405 U/L (40-136); BILIRUBIN,TOTAL 4.6 MG/DL (0.1-1.0); BUN/CREATININE RATIO 23; CALCIUM 9.7 MG/DL (8.5-10.1); CARBON DIOXIDE 20 MMOL/L (21-32); CHLORIDE 105 MMOL/L (98-107); CREATININE SERUM 1.25 MG/DL (0.60-1.30); GFR ESTIMATED 56; LIPASE 24 U/L (8-78); POTASSIUM 3.9 MMOL/L (3.6-5.0); SODIUM 138 MMOL/L (135-145); TOTAL PROTEIN 6.7 GM/DL (6.4-8.2)
[2023-03-29 07:51] LABS: GLUCOSE 56 MG/DL (70-105)
[2023-03-29] MEDS ORDERED: DEXTROSE 24 GM ORAL GEL TUBE PO ONE (08:00)
--- NOTE | 2023-03-29 08:10 | Diagnostic Imaging Report ---
EXAMINATION: CT abdomen and pelvis with intravenous contrast. TECHNIQUE: Multiple contiguous axial images were obtained through the abdomen and pelvis after the uneventful administration of intravenous contrast. All CT scans use one or more of the following dose optimizing techniques: automated exposure control, MA and/or KvP adjustment based on patient size and exam type or iterative reconstruction. HISTORY: Abdominal pain, nausea and vomiting COMPARISON: 03/18/2023 FINDINGS: Limited views of the lower thorax show small right pleural effusion. Liver is cirrhotic. There is a lesion in the right liver. The enhancing component measures 2.3 x 2.3 cm, previously 2.6 x 2.6 cm. No new liver lesion is seen. 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 No biliary ductal dilation. There are stones in the gallbladder. Pancreas is normal. Spleen is normal. Adrenal glands are normal. The kidneys are normal. There is no hydronephrosis. Urinary bladder is normal. There has been a transurethral resection of the prostate. There is wall thickening of the ascending colon likely representing portal hypertensive colopathy. There is diverticulosis without diverticulitis. Large amount of free fluid is present. No free air. There is free fluid within several small ventral abdominal hernias. There has been a right inguinal hernia repair. There is an ostomy in the left abdomen. No abdominal or pelvic lymphadenopathy. Aorta is normal in caliber without aneurysm. There are no suspicious osseus lesions. There is an unchanged T12 moderate compression fracture. IMPRESSION: 1. Cirrhotic liver with continued decrease in size of the enhancing components of a right liver lesion. 2. Increasing right portal vein thrombus. 3. Large amount of ascites. 4. Wall thickening of the ascending colon favored to reflect portal hypertensive colopathy. Dictated by: Dictated on workstation # [id number]
[2023-03-29] MEDS ORDERED: ANTACID SUSP 30 ML UDC (MYLANTA) PO STA (08:13)
[2023-03-29] MEDS ORDERED: PANTOPRAZOLE 40 MG (PROTONIX) VIAL IV STA (08:13)
[2023-03-29] MEDS ORDERED: cefTRIAXone IV/IM 1,000 MG in NS (IVPB) 50 ML IV STA (08:44)
[2023-03-29 11:15] VITALS: BP 87/53
== END 2023-03-29 11:20 | disposition short-term general hospital (02) ==
LOC: EDUNIT# 06:52 → ER FS 06:54
DX: K74.60 Unspecified cirrhosis of liver (principal); R18.8 Other ascites; I81 Portal vein thrombosis; R74.02 Elevation of levels of lactic acid dehydrogenase [LDH]; I47.1 Supraventricular tachycardia; D64.9 Anemia, unspecified; K57.90 Diverticulosis of intestine, part unspecified, without perforation or abscess without bleeding; D69.6 Thrombocytopenia, unspecified; R79.89 Other specified abnormal findings of blood chemistry
CPT/HCPCS: 36415; 74177; 80053; 82947; 83605; 83690; 83880; 84484; 85025; 86141; 87040; 93005; 93041; Q9967